=== PATIENT | female | born 1985 | race Caucasian/White ===

== ENCOUNTER 2020-11-13 17:13 | Outpatient (REF) | payer MEDICAID, SELFPAY ==
[2020-11-15 15:12] LABS: Chlamydia Result Negative (Negative); GC Result Negative (Negative)
== END 2020-11-13 17:33 ==
LOC: LBN 17:13
PROVIDERS: PCP Nurse Practitioner Family; Visit Provider Physician Assistant
DX: N76.0 Acute vaginitis (principal); Z20.2 Contact with and (suspected) exposure to infections with a predominantly sexual mode of transmission; Z11.3 Encounter for screening for infections with a predominantly sexual mode of transmission
CPT/HCPCS: 87491; 87591; 87480; 87510; 87660

== ENCOUNTER 2022-01-21 18:28 | Emergency (ER) | payer MEDICAID, SELFPAY ==
[2022-01-21 18:34] VITALS: BP 118/59; PULSE 70; RESP 18; TEMP 36.3; O2SAT 96
[2022-01-21] MEDS: Ketorolac 15 MG/ML VIAL IVP (19:22)
[2022-01-21] MEDS: Cephalexin 500 MG CAP PO (19:22)
[2022-01-21 19:27] LABS: Abs Immature Grans 0.04 10^3/uL (0.0-0.06); Absolute Basophil Count 0.05 10^3/uL (0.0-0.2); Absolute Eosinophil Count 0.31 10^3/uL (0.0-0.7); Absolute Lymphocyte Count 3.95 10^3/uL (1.2-3.4); Absolute Monocyte Count 1.19 10^3/uL (0.1-0.8); Basophils % 0.4; Eosinophils % 2.6; HCT 40.5 % (36.0-46.0); Immature Grans % 0.3; MCH 33.9 pg (27.0-33.0); MCHC 34.6 % (32.0-36.0); MCV 98.1 fL (80-95); MPV 12.8 fL (8.0-11.0); Monocytes % 9.9; Neutrophils % 53.8; Nucleated RBC 0 %; Platelet Count 135 10^3/uL (130-400); RBC 4.13 10^6/uL (3.93-5.22); RDW 12.2 % (11.7-14.6); RDW-SD 44.3 fL; WBC 11.98 10^3/uL (4.4-10.8)
[2022-01-21 19:31] LABS: Absolute Neutrophil Count 6.45 10^3/uL (1.2-6.7)
[2022-01-21 19:38] LABS: ALT 77 U/L (14-59); AST 26 U/L (15-37); Albumin 3.5 g/dL (3.4-5.0); Alkaline Phosphatase 58 U/L (46-116); Anion Gap 6.6 mmol/L (3-11); BUN 18 mg/dL (7-18); Bilirubin, Total 0.7 mg/dL (0.2-1.0); CO2 28.4 mmol/L (21.0-32.0); CREATININE 0.7 mg/dL (0.55-1.02); Calcium 8.6 mg/dL (8.5-10.1); Chloride 105 mmol/L (98-107); Glucose 89 mg/dL (74-106); Potassium 3.8 mmol/L (3.5-5.1); Sodium 140 mmol/L (136-145); Total Protein 6.9 g/dL (6.4-8.2)
[2022-01-21 19:54] LABS: D-Dimer 337 ng/mlFEU (<500)
--- NOTE | 2022-01-21 20:03 | ED.GENADUL_ITS ---
Discharge Plan Disposition Patient Disposition: HOME Condition: Stable Discharge Details Clinical Impression: Acute back pain with sciatica, Furuncle of extremity Primary Care Provider: Tabitha Zapata ED Provider: Sarwat Patricia Home Meds and New Rx's Prescriptions: New cephalexin 500 mg tablet 500 mg PO QID 5 Days Qty: 20 0RF ibuprofen [IBU] 600 mg tablet 600 mg PO QID PRN (Reason: pain) Qty: 14 0RF Discharge Instructions Instructions: Furunculosis and Carbunculosis (ED), Back Pain (ED) Additional Instructions: At this time it appears that you have an ingrown hair follicle that is mildly infected. Please take antibiotics as prescribed and also apply a warm compress for 20 minutes at a time at least 4 times daily. It will typically take 24 to 48 hours to see improvement of your symptoms but if you have any significant worsening of your symptoms please return immediately for reassessment. Otherwise follow-up with your primary care provider for reassessment if not improving in the next week. Referrals: Tabitha Zapata, ANGELA [Primary Care Provider] - 1 week (If not improving) Discharge Data Discharge Date/Time-TO BE ENTERED AT DEPARTURE: 01/21/22 20:16 Medical Decision Making Patient presenting to the emergency department with chief complaint of left lower leg pain. Patient does state history of sciatica/bulging disc with some pain radiating down her left leg. She does states she noticed a area of swelling and significant pain to the back of the leg with redness and warmth. Patient denies any known injury or trauma, fever chills, does state that her entire left leg hurts. Physical exam shows normal range of motion of left lower extremity, no swelling, no pinpoint tenderness but all over reported discomfort, and a carbuncle/furuncle to the posterior thigh with point tenderness and discomfort. Exam is otherwise unremarkable. Suspect that patient has her chronic sciatica with discomfort due to small infected furuncle. Given that patient states entire extremity discomfort we will do some labs including D- dimer as I feel this is appropriate for rule out of DVT given no other physical exam findings or history that would suggest high suspicion of this. Review of labs is nonworrisome except for a mild elevated WBC lymphocytes and monocytes otherwise labs are nondiagnostic with a less than 500 D-dimer. Given this patient was placed upon NSAIDs for her sciatic type back pain and Keflex for the slight area of infection. Patient encouraged to follow-up with primary care for reassessment of wound especially if not improving over the next week. After discussion of diagnosis and plan of care patient has no further needs, questions, or concerns and states clear understanding to return to the emergency department for any worsening symptoms. HPI General Mode of arrival: ambulatory . Date/Time Provider Initiated Documentation: 01/21/22 18:40 . Limitations to Documentation: no limitations . Information obtained by: patient . History of Present Illness 36 year old F presents to the emergency department with the chief complaint of Left leg pain, described as moderate, with intensity rated at 8. Quality is described as sharp, and is localized to the left and lower extremity. Patient distal. Patient started experiencing this week(s) (2) and it has been constant. improves with No relieving factors improve symptom(s), and Rest improves symptom(s), Movement worsens symptoms and Other factors that worsen symptoms (Sciatic back pain) . Patient notes no other symptoms.. Patient did receive the following treatments prior to arrival, none Related Data Home Medications Medication Instructions Recorded Confirmed cephalexin 500 mg tablet 500 mg PO QID 5 Days #20 tab 01/21/22 ibuprofen 600 mg tablet (IBU) 600 mg PO QID PRN #14 tab 01/21/22 Previous Rx's Medication Instructions Recorded cephalexin 500 mg tablet 500 mg PO QID 5 Days #20 tab 01/21/22 ibuprofen 600 mg tablet (IBU) 600 mg PO QID PRN #14 tab 01/21/22 Allergies Allergy/AdvReac Type Severity Reaction Status Date / Time codeine Allergy Mild Skin Rash Verified 01/21/22 19:12 General Stated Complaint: Cellulitis OREN: 3 Review of Systems Constitutional Constitutional: Denies chills and Denies fever(s) Cardiovascular Cardiovascular: Denies chest pain and Denies dyspnea on exertion Respiratory Respiratory: Denies cough and Denies dyspnea on exertion Gastrointestinal Gastrointestinal: Denies abdominal pain, Denies change in bowel habits, Denies diarrhea, Denies nausea and Denies vomiting Genitourinary Genitourinary: Denies urinary incontinence Musculoskeletal Musculoskeletal: Reports as per HPI and Reports back pain Integumentary/Breasts Skin/Breast: Reports as per HPI, Reports furuncle, Reports skin pain and Reports skin swelling Neurologic Neurologic: Denies sensory deficit PFSH All Active Problems Furuncle of extremity (Acute) Acute back pain with sciatica (Acute) Exposure to chlamydia (Acute) Cigarette smoker (Chronic) TMJ (temporomandibular joint syndrome) (Chronic) Social History Smoking/Tobacco Use Status: Current every day Tobacco Type: cigarettes Counseling given: other Details: ADVISED TO QUIT Smoking risk assessment performed?: Yes Alcohol Intake: current Alcohol Intake frequency: 0-2 drinks per day Drug use: Never Substance use type: does not use current occupation: [employer] Do you think of yourself as: straight/heterosexual What type of physical activity do you participate in: none Seatbelt use: always Do you feel safe at home: Yes Do you feel safe in your relationship?: Yes Exam Const General: cooperative, no acute distress and not ill appearing Orientation: alert, awake and oriented x3 HENMT Mouth: moist mucous membranes Resp Effort & Inspection: normal respiratory effort, able to speak in complete sentences and no respiratory distress Cardio Rate: regular rate Rhythm: regular rhythm Pulses: posterior tibial pulses present and dorsalis pedis present Neuro General: patient alert, patient awake, patient oriented x3, moves all extremities and no focal motor deficits Sensory Exam: no sensory deficits noted Extrem General: normal exam except as noted Left lower extremity: full ROM, normal capillary refill, no joint enlargement and hip/thigh Details: tenderness Location: of the proximal upper leg Location: posteriorly (Over area of carbuncle) and normal ROM; Negative for no swelling, no abrasions, no lacerations, no ecchymosis, no penetrating wound, no deformity and no unusual warmth; No no edema Course Vital Signs Vital signs: Vital Signs Temperature 36.3 C L 01/21/22 18:34 Pulse 70 01/21/22 18:34 Respiratory Rate 18 01/21/22 18:34 Blood Pressure 118/59 L 01/21/22 18:34 Pulse Oximetry 96 01/21/22 18:34 Temperature 36.3 C L 01/21/22 18:34 Temperature Source Temporal Artery Scan 01/21/22 18:34 Pulse 70 01/21/22 18:34 Respiratory Rate 18 01/21/22 18:34 Respiratory Effort Non-Labored 01/21/22 18:39 Blood Pressure 118/59 L 01/21/22 18:34 Blood Pressure Position Sitting 01/21/22 18:34 Pulse Oximetry 96 01/21/22 18:34 Oxygen Delivery Method Room Air 01/21/22 18:34 Oxygen Flow Rate 0 01/21/22 18:34 Lab/Test Results Lab/Test Results: Laboratory Tests Range/Units 01/21/22 01/21/22 01/21/22 19:18 19:18 19:18 WBC (4.4-10.8) 10^3/uL 11.98 H RBC (3.93-5.22) 10^6/uL 4.13 Hgb (11.2-15.7) g/dL 14.0 Hct (36.0-46.0) % 40.5 MCV (80-95) fL 98.1 H MCH (27.0-33.0) pg 33.9 H MCHC (32.0-36.0) % 34.6 RDW (11.7-14.6) % 12.2 Plt Count (130-400) 10^3/uL 135 MPV (8.0-11.0) fL 12.8 H Immature Gran % 0.3 Neutrophils % 53.8 Lymphocytes % 33.0 Monocytes % 9.9 Eosinophils % 2.6 Basophils % 0.4 Nucleated RBC % % 0 Absolute Neutrophils (1.2-6.7) 10^3/uL 6.45 Absolute Lymphocytes (1.2-3.4) 10^3/uL 3.95 H Absolute Monocytes (0.1-0.8) 10^3/uL 1.19 H Absolute Eosinophils (0.0-0.7) 10^3/uL 0.31 Absolute Basophils (0.0-0.2) 10^3/uL 0.05 D-Dimer (<500) ng/mlFEU 337 Sodium (136-145) mmol/L 140 Potassium (3.5-5.1) mmol/L 3.8 Chloride (98-107) mmol/L 105 Carbon Dioxide (21.0-32.0) mmol/L 28.4 Anion Gap (3-11) mmol/L 6.6 BUN (7-18) mg/dL 18 Creatinine (0.55-1.02) mg/dL 0.7 Estimated GFR/1.73 m2 (mL/min/1.73m2) >= 60.00 Glucose (74-106) mg/dL 89 Calcium (8.5-10.1) mg/dL 8.6 Total Bilirubin (0.2-1.0) mg/dL 0.7 AST (15-37) U/L 26 ALT (14-59) U/L 77 H Alkaline Phosphatase (46-116) U/L 58 Total Protein (6.4-8.2) g/dL 6.9 Albumin (3.4-5.0) g/dL 3.5 PAWSS Have you Been Recently Intoxicated or Drunk Within the Last 30 days?: No Have you Ever Experienced Previous Episodes of Alcohol Withdrawal?: No Have you ever Experienced Withdrawal Seizures?: No Have you ever Experienced Delirium Tremens(DT)s?: No Have you ever undergone Alcohol Rehabilitation Treatment (i.e, inpt ot outpatient treatment programs)?: No Have you ever Experienced Blackouts?: Yes Have you ever Combined Alcohol with other Downers within the last 90 days?: No Have you ever Combined Alcohol with any other Substance of Abuse during the last 90 days?: No Positive Blood Alcohol level on Presentation? [PCS.BAL]: No Evidence of Increased Autonomic Activity (i.e. HR>120, tremor, sweating, agitation, nausea)?: No Result: 1
== END 2022-01-21 20:16 | disposition home or self-care (01) ==
PROVIDERS: Emergency Provider Nurse Practitioner Family; PCP Nurse Practitioner Family
DX: M54.42 Lumbago with sciatica, left side (principal); L02.426 Furuncle of left lower limb
CPT/HCPCS: 36415; 80053; 96374; 99284; 85025; 85379; 99283; J1885

== ENCOUNTER 2023-08-05 12:18 | Emergency (ER) | payer MEDICAID, SELFPAY ==
[2023-08-05 12:24] VITALS: BP 118/63; PULSE 66; RESP 18; TEMP 36.4; O2SAT 98
[2023-08-05 13:08] VITALS: BP 118/63; PULSE 66; RESP 18; TEMP 36.4; O2SAT 98
--- NOTE | 2023-08-05 14:39 | W.ED.GENAD ---
Discharge Plan Disposition Patient Disposition: Home Discharge Details Clinical Impression: Postviral syndrome Primary Care Provider: Tabitha Zapata ED Provider: Sarwat Patricia Home Meds and New Rx's Prescriptions: New benzonatate 200 mg capsule 200 mg PO TID PRN (Reason: cough) Qty: 30 0RF Continued albuterol sulfate 90 mcg/actuation HFA aerosol inhaler 2 puff inhalation QID PRN (Reason: shortness of breath or wheezing) Qty: 8.5 1RF ibuprofen [IBU] 600 mg tablet 600 mg PO QID PRN (Reason: pain) Qty: 14 0RF Discharge Instructions Instructions: Viral Syndrome (ED) Additional Instructions: Please get plenty of rest and stay well-hydrated. At this time I feel that you are recovering from a virus and may still have an additional week or so before your symptoms fully resolved. If you develop any new fever or have any significant worsening of symptoms at this point please be seen by your primary care provider or if severe feel free to follow-up in the emergency department for reassessment. Referrals: Tabitha Zapata, WET CROWN BLOCKING OPERATOR [Primary Care Provider] - 1 week (If not improving please follow-up with your primary care provider for reassessment) Discharge Data Discharge Date/Time-TO BE ENTERED AT DEPARTURE: 08/05/23 14:56 Medical Decision Making Patient presenting to the clinic for chief complaint of cold symptoms. Patient reports symptoms have been going on for the past 14 days. reports nasal congestion, and sore throat. Physical exam is unremarkable and shows no focal HENT findings with clear lung sounds stable vital signs. Patient has no signs of meningitis, peritonsillar abscess, retropharyngeal abscess, Juan M's angina, or life-threatening Airway infection. Conservative management discussed along with follow-up and return precautions. Patient prescribed Tessalon Perles to help with reported nighttime intermittent cough otherwise I feel that patient is recovering from viral illness which she stated started 2 weeks ago but denies any worsening of symptoms. After discussion of diagnosis and plan of care patient has no further needs, questions, or concerns and states clear understanding to return to the emergency department for any worsening symptoms. This documentation was generated using [employer]palmation system, please disregard any oddities of phrase or misspellings. HPI General Mode of arrival: ambulatory. Date/Time Provider Initiated Documentation: 08/05/23 13:18. Limitations to Documentation: no limitations. Information obtained by: patient and RN notes reviewed. History of Present Illness 37 year old F presents to the emergency department with the chief complaint of Cough, congestion, described as moderate, Patient started experiencing this week(s) (2) and it has been constant. No relieving factors improve symptom(s), No exacerbating factors reported . Patient did receive the following treatments prior to arrival, none Related Data Home Medications Medication Instructions Recorded Confirmed ibuprofen 600 mg tablet (IBU) 600 mg PO QID PRN pain #14 tabs 01/21/22 08/05/23 albuterol sulfate 90 mcg/actuation 2 puff inhalation QID PRN 04/23/23 08/05/23 aerosol inhaler shortness of breath or wheezing #8.5 grams benzonatate 200 mg capsule 200 mg PO TID PRN cough #30 caps 08/05/23 Previous Rx's Medication Instructions Recorded ibuprofen 600 mg tablet (IBU) 600 mg PO QID PRN pain #14 tabs 01/21/22 albuterol sulfate 90 mcg/actuation 2 puff inhalation QID PRN 04/23/23 aerosol inhaler shortness of breath or wheezing #8.5 grams benzonatate 200 mg capsule 200 mg PO TID PRN cough #30 caps 08/05/23 Allergies Allergy/AdvReac Type Severity Reaction Status Date / Time codeine Allergy Mild Skin Rash Verified 08/05/23 12:26 General Stated Complaint: RespSymp ORNE: 4 Review of Systems Constitutional Constitutional: Denies body ache(s), Denies chills, Denies fever(s), Denies headache(s) and Reports malaise Eyes Eyes: Denies eye discharge ENT Ears, Nose, Mouth, and Throat: Reports as per HPI, Denies ear discharge, Reports otalgia, Denies headache(s), Reports nasal congestion, Denies neck pain, Denies sore throat and Denies throat swelling Cardiovascular Cardiovascular: Denies chest pain and Denies dyspnea Respiratory Respiratory: Reports cough, Denies pain with cough and Denies dyspnea Musculoskeletal Musculoskeletal: Denies joint swelling and Denies neck pain Integumentary/Breasts Skin/Breast: Denies rash Neurologic Neurologic: Denies headache(s) Allergic/Immunologic Allergic/Immunologic: Denies throat swelling PFSH All Active Problems (Updated 08/05/23 @ 14:39 by Sarwat Patricia NP) Postviral syndrome (Acute) Exposure to chlamydia (Acute) Cigarette smoker (Chronic) TMJ (temporomandibular joint syndrome) (Chronic) Social History Smoking/Tobacco Use Status: Current every day Tobacco Type: cigarettes Counseling given: other Details: ADVISED TO QUIT Smoking risk assessment performed?: Yes Alcohol Intake: current Alcohol Intake frequency: 0-2 drinks per day Drug use: Never Substance use type: does not use current occupation: [employer] Do you think of yourself as: straight/heterosexual What type of physical activity do you participate in: none Seatbelt use: always Do you feel safe at home: Yes Do you feel safe in your relationship?: Yes Exam Const General: cooperative, comfortable and no acute distress Orientation: alert and awake HENMT Head: normal to inspection, normocephalic and atraumatic Ears: hearing grossly normal bilaterally and TM's normal bilaterally General nose exam: external nose normal Face and sinus: no erythema Mouth: oral mucosae normal, no drooling, no muffled voice and no trismus Throat: posterior oropharynx normal Neck Neck: normal visual inspection, full ROM, no lymphadenopathy, no meningeal signs, trachea midline and supple Resp Effort & Inspection: normal respiratory effort and able to speak in complete sentences Auscultation: clear to auscultation bilaterally Cardio Rate: regular rate Rhythm: regular rhythm Heart Sounds: S1 normal, S2 normal, normal S1 and S2, no click, no gallops, no murmurs and no rubs Skin General skin exam: no rashes or lesions noted and dry skin (warm) Neuro General: patient alert, patient awake, patient oriented x3, gait normal and moves all extremities Cognition: normal cognition Speech: speech normal Course Vital Signs Vital signs: Vital Signs Temperature 36.4 C L 08/05/23 12:24 Pulse 66 08/05/23 12:24 Respiratory Rate 18 08/05/23 12:24 Blood Pressure 118/63 08/05/23 12:24 Pulse Oximetry 98 08/05/23 12:24 Temperature 36.4 C L 08/05/23 13:08 Temperature Source Skin 08/05/23 13:08 Pulse 66 08/05/23 13:08 Respiratory Rate 18 08/05/23 13:08 Respiratory Effort Normal, Non-Labored 08/05/23 13:06 Respiratory Depth Normal 08/05/23 13:06 Blood Pressure 118/63 08/05/23 13:08 Blood Pressure Position Sitting 08/05/23 13:08 Pulse Oximetry 98 08/05/23 13:08 Oxygen Delivery Method Room Air 08/05/23 13:08 Oxygen Flow Rate 0 08/05/23 13:08
== END 2023-08-05 14:56 | disposition home or self-care (01) ==
PROVIDERS: Emergency Provider Nurse Practitioner Family; PCP Nurse Practitioner Family
DX: G93.31 Postviral fatigue syndrome (principal)
CPT/HCPCS: 99283

== ENCOUNTER 2024-11-13 16:34 | Observation (INO) | payer MEDICAID, SELFPAY ==
[2024-11-13 16:37] VITALS: BP 149/101; PULSE 66; RESP 15; TEMP 36.8; O2SAT 98
[2024-11-13 16:39] VITALS: BP 149/101; PULSE 66; RESP 15; TEMP 36.8; O2SAT 98
--- NOTE | 2024-11-13 17:00 | DI.CT_ITS ---
Exam(s) CT ABDOMEN PELVIS W EXAM: CT ABDOMEN PELVIS W CLINICAL HISTORY: RUQ pain. TECHNIQUE: Imaging Protocol: Axial computed tomography images with coronal and sagittal reformatted images were created and reviewed CONTRAST MATERIAL: Intravenous: Omnipaque-350 100cc Oral: None COMPARISON: No exams were available for comparison FINDINGS: VISUALIZED LUNG BASES: No nodules nor pleural effusions evident. ABDOMEN: There is no ascites. LIVER: There are no focal hepatic lesions evident. No dilated intrahepatic ducts. GALLBLADDER/BILIARY: There is a round 2 cm diameter gallstone lodged in the gallbladder neck and the gallbladder is distended and minimally edematous. There is no pericholecystic fluid. CBD is not dil ated. PANCREAS: No evidence of pancreatic mass nor dilatation of the pancreatic duct. SPLEEN: Spleen is not enlarged. No obvious intrasplenic lesions. Splenic and portal veins are paten t. ADRENALS: There are no significant adrenal masses. KIDNEYS:No cysts evident. No solid renal masses. No calculi nor hydronephrosis.. ABDOMINAL AORTA: Abdominal aorta is not enlarged. LYMPH NODES:There is no retroperitoneal nor paraaortic adenopathy. ABDOMINAL WALL: No evidence of significant anterior abdominal wall nor inguinal hernia. GI: There is no evidence of bowel obstruction, free air, nor abscess. PELVIS: GI: No evidence of appendicitis.No evidence of sigmoid diverticulitis. LYMPH NODES: There is no intrapelvic nor inguinal adenopathy. REPRODUCTIVE: Uterus and adnexal regions appear unremarkable. There is no air column consistent with tampon in the vagina. There is no free fluid in the pelvis. URINARY BLADDER: No calculi nor obvious masses evident OSSEOUS: No fractures and no significant osseous lesions. IMPRESSION: 1. The main finding here is a 2 cm round gallstone lodged in the gallbladder neck and the gallbladder is distended and mildly edematous. CBD is not dilated. There are no dilated intrahepatic ducts. 2. No evidence of appendicitis nor diverticulitis. Findings discussed by phone with ER provider 11/13/2024 at 6:54 p.m. RADIATION DOSE DELIVERED: 628.77mGy.cm Total DLP DATA REPOSITORY: All CT scans at this facility are submitted to the National Radiology Data Registry (NRDR) Dose Index Registry (DIR) with the [employer] (ACR). RADIATION OPTIMIZATION: All CT scans at this facility use at least one of these dose optimization te chniques: automated exposure control; mA and/or kV adjustment per patient size (includes targeted exa ms where dose is matched to clinical indication); or iterative reconstruction.
[2024-11-13 17:08] LABS: Bilirubin Negative (Negative); Blood Moderate (Negative); Clarity Clear (Clear); Glucose Negative (Negative); Ketones Trace mg/dL (Negative); Leukocyte Esterase Negative (Negative); Nitrite Negative (Negative); Specific Gravity >= 1.030 (1.005-1.025); Urobilinogen 0.2 mg/dL (Up to 0.2)
[2024-11-13 17:18] LABS: Bacteria Rare HPF (Negative); C & S Indicated? No/Sq. Contamination; Casts Negative LPF (Negative); Crystals Negative HPF (Negative); Epithelial Cells Moderate HPF (Negative); Mucus Moderate (Negative); WBC 0-2 HPF (0-5)
[2024-11-13 17:33] LABS: Abs Immature Grans 0.02 10^3/uL (0.0-0.06); Absolute Basophil Count 0.02 10^3/uL (0.0-0.2); Absolute Eosinophil Count 0.07 10^3/uL (0.0-0.7); Absolute Lymphocyte Count 2.75 10^3/uL (1.2-3.4); Absolute Monocyte Count 0.71 10^3/uL (0.1-0.8); Absolute Neutrophil Count 5.26 10^3/uL (1.2-6.7); Basophils % 0.2 %; Eosinophils % 0.8 %; HGB 14.9 g/dL (11.2-15.7); Immature Grans % 0.2 %; Lymphocytes % 31.1 %; MCH 32.9 pg (27.0-33.0); MCHC 34.7 % (32.0-36.0); MCV 95 fL (80-95); MPV 12.7 fL (8.0-11.0); Neutrophils % 59.7 %; Platelet Count 152 10^3/uL (130-400); RBC 4.53 10^6/uL (3.93-5.22); RDW 11.9 % (11.7-14.6); RDW-SD 41.4 fL; WBC 8.83 10^3/uL (4.4-10.8)
[2024-11-13] MEDS: ACETAMINOPHEN 1,000 MG/100 ML BAG 400 MG IVPB (17:48)
[2024-11-13] MEDS: Ondansetron 4 MG/2 ML VIAL IVP (18:06)
[2024-11-13] MEDS: Normal Saline - Diluent 50 ML VIAL IJ (18:26)
[2024-11-13] MEDS: Omnipaque 350 MG/ML 100 ML BTL 75 ML IJ (18:28)
--- OUTSIDE RECORDS SUMMARY | 2024-11-13 18:59 | XMS_ITS | Encounter Summary ---
Author Organization [facility] Address [address] [place] [address] Care Team Providers Care Steel Cutter Name Role Phone Unavailable Primary Care Provider Unavailabl e Encounter Details Date Type Department Care Team (Late st Contact Info) Description 05/02/2005 Results Only [facility] [address] [place] [address] Terrance Newberry [address] [place], [place] [id number] Social History Tobacco Use Types Packs/Day Years Used Date Smoking Tobacco: Never Assessed Comments Unknown Sex and Gender Information Value Date Recorded Sex Assigned at Not on file Legal Sex Female 18:33 EST Gender Identity Not on file Sexual Orientation Not on file documented as of this encounter Plan of Treatment Not on file documented as of this encounter Procedures Procedure Name Priority Date/Time Associated Diagnosis Comments CYTOPATHOLOGY Routine 05/02/2005 0:00 EDT documented in this encounter Results * CYTOPATHOLOGY (05/02/2005 0:00 EDT) Pathology Report: CYTOPATHOLOGY REPORT Reports generated via electronic interface contain original data; however they are lacking the format of the original report. Caution should be taken when reading/interpreti ng unformatted reports. Name: ? JIMENEZ ASHLEY ? Accession #: ? [id number] : ? 1985 (Age: 19) ??F ?Collect Date: ? 05/02/2005 Location: ? [facility] ? Receive Date: ? 05/04/2005 Provider: ?TERRANCE GASPARM Copy to: ? Specimen/Source: ?ThinPrep Pap Test, Cervix/Endocervix, processed on [employer] ThinPrep Imaging System, with manual evaluation Last Menstrual Period: ? Hormonal/Contracep tive Status: ? Depo-Provera Other: ? HPVA - HPV testing requested if ASC-US on the current ThinPrep Pap test. ? SPECIMEN ADEQUACY ? Satisfactory for Evaluation - transformation zone component present GENERAL CATEGORIZATION ? Negative for Intraepithelial Lesion or Malignancy ? Document reviewed and electronically signed by: ? Noel Justice, DEANNA(ASCP) ? Report Date: ??05/12/2005 07:10 End of Report KATIE SANDOVAL 05/02/2005 05/04/2005 us Terrance Newberry CNM PATHOLOGY ORDERABLES Final Resul t KATIE SANDOVAL [address] [place] [address] documented in this encounter Visit Diagnoses Not on filedocumented in this encounter
--- OUTSIDE RECORDS SUMMARY | 2024-11-13 18:59 | XMS_ITS | Encounter Summary ---
Author Organization [facility] [place] [address] Care Team Providers Care Manager Of Product Name Role Phone Dinesh Sarkar MD, Billy Primary Care Provider [phone] Reason for Visit * Reason Onset Date Comments Medication Refill 03/29/2016 Encounter Details Date Type Department Care Team (Late st Contact Info) Description 03/29/2016 Refill [place] [address] Wood Francisco MD [facility] [place] [address] Spinal stenosis at L4-L5 level Social History Tobacco Use Types Packs/Day Years Used Date Smoking Tobacco: Never Assessed Sex and Gender Information Value Date Recorded Sex Assigned at Not on file Gender Identity Not on file Sexual Orientation Not on file documented as of this encounter Plan of Treatment Not on file documented as of this encounter Visit Diagnoses Diagnosis Spinal stenosis at L4-L5 level documented in this encounter Care Teams Manager Of Product Relationship Specialty Start Date End Date Billy Montiel MD [address] [place], [place] [id number] PCP - General 09/06/10 10/23/24 documented as of this encounter
--- OUTSIDE RECORDS SUMMARY | 2024-11-13 18:59 | XMS_ITS | Clinical Summary ---
Author Organization [facility] Address [address] [place] [id number] Care Team Providers Care Float Remover Name Role Phone Unknown, Provider MD Primary Care Provider Unava ilable Social History Tobacco Use Types Packs/Day Years Used Date Smoking Tobacco: Never Assessed Comments Unknown Sex and Gender Information Value Date Recorded Sex Assigned at Not on file Legal Sex Female 18:33 EST Gender Identity Not on file Sexual Orientation Not on file Plan of Treatment Health Maintenance Due Date Last Done Comments Hepatitis C Screen 1985 Hepatitis B Vaccine (1 of 3 - 19+ 3-dose series) 12/22 COVID-19 Vaccine (2023- season) 2024 Care Teams Float Remover Relationship Specialty Start Date End Date Unknown, Provider, PCP - General 02/12/15
--- OUTSIDE RECORDS SUMMARY | 2024-11-13 18:59 | XMS_ITS | Encounter Summary ---
Author Organization [facility] Address [address] [place] [address] Care Team Providers Care Bucket Wash Operator Name Role Phone Unavailable Primary Care Provider Unavailabl e Encounter Details Date Type Department Care Team (Late st Contact Info) Description 03/28/2004 Results Only [facility] [address] [place] [address] Terrance Phillips CN [address] [facility] [address] [place], [place] [id number] Social History Tobacco Use Types Packs/Day Years [...] Priority Date/Time Associated Diagnosis Comments CYTOPATHOLOGY Routine 03/28/2004 0:00 EDT documented in this encounter Results * CYTOPATHOLOGY (03/28/2004 0:00 EDT) Pathology Report: CYTOPATHOLOGY REPORT Reports generated via electronic interface contain original data; however they are lacking the format of the original report. Caution should be taken when reading/interpreti ng unformatted reports. Name: ? JIMENEZ ASHLEY ? Accession #: ? [id number] : ? 1985 (Age: 18) ??F ?Collect Date: ? 03/28/2004 Location: ? [facility] ? Receive Date: ? 03/31/2004 Provider: ?TERRANCE PHILLIPS CNM Copy to: ? Specimen/Source: ?ThinPrep Pap Test, Cervix/Endocervix Last Menstrual Period: ? 12/28/03 Menstrual/Pregnanc y Status: ? Other: ? HPVA - HPV testing requested if ASC-US on the current ThinPrep Pap test. ? SPECIMEN ADEQUACY ? Satisfactory for Evaluation - transformation zone component present GENERAL CATEGORIZATION ? Negative for Intraepithelial Lesion or Malignancy ? Document reviewed and electronically signed by: ? DEANNA Wilburn(ASCP) ? Report Date: ??04/05/2004 09:23 End of Report [facility] 03/28/2004 03/31/2004 us Subhabritany Pelayodiane CNM PATHOLOGY ORDERABLES Final Resul t [facility]AT[facility]OV[facility] [address] [place] [address] documented in this encounter Visit Diagnoses Not on filedocumented in this encounter
--- OUTSIDE RECORDS SUMMARY | 2024-11-13 18:59 | XMS_ITS | Encounter Summary ---
Author Organization [facility] Address [address] [place] [address] Care Team Providers Care Slots Manager Name Role Phone Unavailable Primary Care Provider Unavailabl e Encounter Details Date Type Department Care Team (Latest Contact Info) Description 02/09/2015 14:34 EDT - 02/09/2015 23:59 EDT Hospital Encounter [address] [address] Unknown, Provider, MD Discharge Disposition: Home or Self Care Social History Tobacco Use Types Packs/Day Years Used Date Smoking Tobacco: Never Assessed Comments Unknown Sex and Gender Information Value Date Recorded Sex Assigned at Not on file Legal Sex Female 18:33 EST Gender Identity Not on file Sexual Orientation Not on file documented as of this encounter Discharge Disposition Disposition Code Departure Means Destination Home or Self Mcfp documented in this encounter Plan of Treatment Not on file documented as of this encounter Visit Diagnoses Not on filedocumented in this encounter
--- OUTSIDE RECORDS SUMMARY | 2024-11-13 18:59 | XMS_ITS | Referral Summary ---
Author Organization [facility] Address [address] [place] [address] Care Team Providers Care Staff Anesthetist Name Role Phone Unknown, Provider Primary Care Provider Unava ilable Social History Tobacco Use Types Packs/Day Years Used Date Smoking Tobacco: Never Assessed Comments Unknown Sex and Gender Information Value Date Recorded Sex Assigned at Not on file Legal Sex Female 18:33 EST Gender Identity Not on file Sexual Orientation Not on file Plan of Treatment Not on file Care Teams Staff Anesthetist Relationship Specialty Start Date End Date Unknown, Provider, PCP - General 02/12/15
--- OUTSIDE RECORDS SUMMARY | 2024-11-13 18:59 | XMS_ITS | Encounter Summary ---
Author Organization [facility] Address [address] [place] [address] Care Team Providers Care Research Editor Name Role Phone Unavailable Primary Care Provider Unavailabl e Encounter Details Date Type Department Care Team (Late st Contact Info) Description 05/16/2007 Results Only [facility] [address] [place] [address] Altaf Burton PA Social History Tobacco Use Types Packs/Day Years [...] Priority Date/Time Associated Diagnosis Comments CYTOPATHOLOGY Routine 05/16/2007 0:00 EDT documented in this encounter Results * CYTOPATHOLOGY (05/16/2007 0:00 EDT) Pathology Report: CYTOPATHOLOGY REPORT Reports generated via electronic interface contain original data; however they are lacking the format of the original report. Caution should be taken when reading/interpreti ng unformatted reports. Name: ? JIMENEZ ASHLEY ? Accession #: ? [id number] : ? 1985 (Age: 21) ??F ?Collect Date: ? 05/16/2007 Location: ? [facility] ? Receive Date: ? 05/20/2007 Provider: ?ALTAF ARANA Copy to: ? Specimen/Source: ?ThinPrep Pap Test, Endocervix, processed on [employer]FXPERT ThinPrep Imaging System, with manual evaluation Last Menstrual Period: ? Hormonal/Contracep tive Status: ? Depo-Provera Other: ? HPVA - HPV testing requested if ASC-US on the current ThinPrep Pap test. ? SPECIMEN ADEQUACY ? Satisfactory for Evaluation - transformation zone component present GENERAL CATEGORIZATION ? Negative for Intraepithelial Lesion or Malignancy ? Document reviewed and electronically signed by: ? Wanda Mock, SCT(ASCP) ? Report Date: ??05/22/2007 15:14 End of Report KATIE SANDOVAL 05/16/2007 05/20/2007 us Altaf ARANA PATHOLOGY ORDERABLES Final Resul t [facility] [address] [place] [address] documented in this encounter Visit Diagnoses Not on filedocumented in this encounter
--- OUTSIDE RECORDS SUMMARY | 2024-11-13 18:59 | XMS_ITS | Encounter Summary ---
Author Organization [facility] Address [address] [place] [address] Care Team Providers Care Companion Caregiver Name Role Phone Unavailable Primary Care Provider Unavailabl e Encounter Details Date Type Department Care Team (Late st Contact Info) Description 08/21/2014 Results Only [facility] Laboratory Services - [facility] ([facility] [address] [place], [place] [id number] Terrance Phillips CN [address] [facility] [address] [place], [place] [id number] Social History Tobacco Use Types Packs/Day Years [...] Procedure Name Priority Date/Time Associated Diagnosis Comments PAP TEST- RESULT ONLY Routine 08/21/2014 0:00 EST documented in this encounter Results * PAP TEST- RESULT ONLY (08/21/2014 0:00 EST) Pathology Report: CYTOPATHOLOGY REPORT Reports generated via electronic interface contain original data; however they are lacking the format of the original report. Caution should be taken when reading/interpreti ng unformatted reports. Name: ? JIMENEZ ASHLEY ? Accession #: ? [id number] ? : ? 1985 (Age: 28) ??F ?Collect Date: ? 08/21/2014 ? Location: ? [facility] ? Receive Date: ? 08/24/2014 ? Provider: TERRANCE PHILLIPS CNM Copy to: KELSEY MERCEDES CNM ? Final Report SPECIMEN ADEQUACY ? Satisfactory for Evaluation - transformation zone component present GENERAL CATEGORIZATION ? Negative for Intraepithelial Lesion or Malignancy ?? Last Menstrual Period: Unknown Menstrual/Pregnanc y Status: ?? Specimen/Source: ??Pap Test, Cervix/Endocervix, ThinPrep Imaging System with manual evaluation Document reviewed and electronically signed by: ? Noel Justice, [place](ASCP) ? Report ??Date: 08/28/2014 14:09 HPV with Pap Test ? Date Ordered: ? 08/28/2014 ? Status: ?? Signed Out ?Date Complete: ? 09/01/2014 ? By: ??System Interface ? Date Reported: ? 09/01/2014 ? Interpretation RESULT: Negative for HPV. No E6 or E7 mRNA is detected from HPV types 16,18,31,33,35, 39,45,51,52,56,58, 59,66, and 68 by optimization manager mediated amplification. Comments Document reviewed and electronically signed by: ? System Interface ? Report date: 09/01/2014 By the signature above, the attending physician certifies that he/she has personally conducted a gross and/or microscopic examination of the described specimens and rendered or confirmed the above diagnosis. End of Report [facility] 08/21/2014 08/24/2014 us Terrance Phillips [facility] PATHOLOGY ORDERABLES Final Resul t [facility] [address] [place] [address] documented in this encounter Visit Diagnoses Not on filedocumented in this encounter
--- OUTSIDE RECORDS SUMMARY | 2024-11-13 18:59 | XMS_ITS | Clinical Summary ---
Author Organization [facility] Address [facility] [place] [address] Care Team Providers Care Vp Scientific Affairs Name Role Phone None Primary Care Provider Unavailabl e Active Problems Problem Noted Date Diagnosed Date Spinal stenosis at L4-L5 level 03/29/2016 Social History Tobacco Use Types Packs/Day Years Used Date Smoking Tobacco: Never Assessed Sex and Gender Information Value Date Recorded Sex Assigned at Not on file Gender Identity Not on file Sexual Orientation Not on file Plan of Treatment Health Maintenance Due Date Last Done Comments HIV screen 12/23/2003 Hepatitis C Screening 12/23/2003 Hepatitis B vaccine (0-59 yrs) (1) 2004 Tetanus/Diphtheria/Pertussis Vaccines (1 - Tdap) 12/22 HPV test 12/23/2015 PAP Smear 12/23/2015 Covid-19 Vaccine ( - 2023- season) 2024 Influenza (Flu) vaccine (1 o f 1 - Influenza standard series) 06/15/2024 Care Teams Vp Scientific Affairs Relationship Specialty Start Date End Date None None PCP - General 10/24/24
--- OUTSIDE RECORDS SUMMARY | 2024-11-13 18:59 | XMS_ITS | Encounter Summary ---
Author Organization [facility] Address [address] [place] [address] Care Team Providers Care Correctional Security Officer Name Role Phone Unknown, Provider Primary Care Provider Unava ilable Encounter Details Date Type Department Care Team (Late st Contact Info) Description 11/14/2020 Lab Requisition [facility] Pathology & Laboratory Medicine - [facility] [address] [place], [place] [id number] Outr Resulting Lab, Provider Social History Tobacco Use Types Packs/Day Years [...] Procedure Name Priority Date/Time Associated Diagnosis Comments CHLAMYDIA/N. GONORRHOEAE AMPLIFIED NUCLEIC ACID Routine 11/13/2020 14:00 EST documented in this encounter Results * CHLAMYDIA/N. GONORRHOEAE AMPLIFIED RNA (11/13/2020 14:00 EST) Neisseria gonorrhoeae Result Negative Negative 11/15/2020 15:07 EST [facility] Chlamydia trachomatis Result Negative Negative 11/15/2020 15:07 EST [facility] Swab ENTIRE WALL OF CERVIX / Unknown 11/13/2020 14:00 EST 11/14/2020 16:35 EST us Provider Outr Resulting Lab MICROBIOLOGY - GENER AL ORDERABLES Final Result [facility] [address] [place] [address] documented in this encounter Visit Diagnoses Not on filedocumented in this encounter Care Teams Correctional Security Officer Relationship Specialty Start Date End Date Unknown, Provider, PCP - General 02/12/15 documented as of this encounter
--- OUTSIDE RECORDS SUMMARY | 2024-11-13 18:59 | XMS_ITS | Encounter Summary ---
Author Organization [facility] Address [address] [place] [address] Care Team Providers Care Accounts Payable Bookkeeper Name Role Phone Unavailable Primary Care Provider Unavailabl e Encounter Details Date Type Department Care Team (Late st Contact Info) Description 02/09/2015 Results Only [facility] [phone] Leydi Santos MD [address] [place] [address] [place] [address] Social History Tobacco Use Types Packs/Day Years [...] Procedure Name Priority Date/Time Associated Diagnosis Comments SURGICAL PATHOLOGY Routine 02/09/2015 20 :36 EDT documented in this encounter Results * SURGICAL PATHOLOGY (02/09/2015 20:36 EDT) Pathology Report: SURGICAL PATHOLOGY REPORT Reports generated via electronic interface contain original data; however they are lacking the format of the original report. Caution should be taken when reading/interpret ing unformatted reports. Name: ? JIMENEZ ASHLEY ? Accession #: ? [id number] ? : ? 1985 (Age: 29) ??F ? Collect Date: ? 02/09/2015 ? Location: ? [facility] ? Receive Date: ? 02/09/2015 ? Provider: LEYDI SANTOS MD Copy to: ? Final Pathologic Diagnosis: A. FALLOPIAN TUBE, RIGHT, SALPINGECTOMY: - ??Fallopian tube with benign paratubal cyst; full cross sections identified.. B. FALLOPIAN TUBE, LEFT, SALPINGECTOMY: - ??Fallopian tube with no specific pathologic features; full cross sections identified. Comment: Deeper sections of part B have been examined. ?? Document reviewed and electronically signed by: NOE ALFONSO MD Report ??Date: 02/12/2015 16:22 By the signature above, the attending physician certifies that he/she has personally conducted a gross and/or microscopic examination of the described specimens and rendered or confirmed the above diagnosis. Specimen(s) Received: A. ??Right fimbria B. ??Left fimbria Clinical History: Multiparity Gross Description: A. ?Received in formalin labelled with proper patient identification (initials D, K) and right fimbria is a fimbriated fallopian tube (4.3 cm in length x 0.6 cm in diameter), without associated ovary. ??The serosa is armstrong-purple and smooth. ??Sectioning reveals a white cut surface with a pinpoint lumen throughout. ??Adjacent to the fimbria, there is a armstrong-white 0.8 cm in greatest dimension paratubal cystic structure which exudes clear fluid. Petroleum Blending Plant Operator sections are submitted in A1, which includes two cross sections and one-half of the fimbria. B. ?Received in formalin labelled with proper patient identification (initials D, K) and left fimbria is a fimbriated fallopian tube (5.3 cm in length x 0.5 cm in diameter), without associated ovary. ??The serosa is armstrong-purple and smooth. ??Sectioning reveals a white cut surface with a pinpoint lumen throughout. ??Petroleum Blending Plant Operator sections are submitted in B1, which includes two cross sections and one-half of the fimbria. Jen Caicedo 02/10/2015 10:31 AM End of Report [facility] 02/09/2015 20:3 6 EDT 02/09/2015 20:36 EDT us Leydi Santos MD PATHOLOGY ORDERABLES Final Resu lt [facility] [address] [place] [address] documented in this encounter Visit Diagnoses Not on filedocumented in this encounter
[2024-11-13 19:15] LABS: ALT 28 U/L (14-59); AST 17 U/L (15-37); Albumin 3.3 g/dL (3.4-5.0); Alkaline Phosphatase 59 U/L (46-116); Anion Gap 6.6 mmol/L (3-11); BUN 7 mg/dL (7-18); Bilirubin, Total 0.59 mg/dL (0.2-1.0); CO2 28.4 mmol/L (21.0-32.0); CREATININE 0.8 mg/dL (0.55-1.02); Chloride 104 mmol/L (98-107); Estimated GFR 96.66 (mL/min/1.73m2); Glucose 89 mg/dL (74-106); Lipase 19 U/L (<78); Potassium 3.9 mmol/L (3.5-5.1); Sodium 139 mmol/L (136-145); Total Protein 7.2 g/dL (6.4-8.2)
[2024-11-13 19:21] LABS: Calcium 9.4 mg/dL (8.5-10.1)
[2024-11-13 19:24] VITALS: BP 128/80; PULSE 61; RESP 12; TEMP 36.6; O2SAT 100
[2024-11-13] MEDS: Ketorolac 15 MG/ML VIAL 7.5 MG IVP (19:50)
[2024-11-13] MEDS: Prochlorperazine 10 MG/2 ML VIAL 5 MG IVP (20:53)
--- NOTE | 2024-11-13 21:00 | W.SURGCON ---
Date of service: 11/13/24 Time of Service: 21:00 Assessment and Plan Assessment and plan (1) Nausea & vomiting: Status: Acute Assessment and plan: 38 yo woman who with 3 days of nausea, vomiting and diarrhea and 4/10 abdominal pain. Normal vital signs. Liver labwork completely normal. No white count. No shift. No pericholecystic fluid on imaging. Unclear what the opiod use history is/was and what role/impact this plays on symptoms. Unclear indication for surgical admission. It's unlikely that she has cholecystitis when after 3 days of symptoms there is no pericholecystic fluid on imaging, no labwork abnormality and difficult to believe she can't hydrate herself if labwork and vitals are normal after 3 days of symptoms. Biliary colic does not last for days on end, but rather for a few hours and then resolves. We can admit her for observation overnight and see how she feels in the morning. No antibiotics. As requested by the patient (per ED provider) - no narcotics. Since she can't tolerate PO intake, we will keep her strict NPO. Re-assess in the morning. Repeat labwork. Possible role for ultrasound, but if she's feeling better, then we'll discharge her and manage further in the office setting. History of Present Illness Narrative: ED provider states patient is in excrutiating pain and cannot tolerate anything PO and needs admission. Specifically cannot drink Ruth Ambar, has been trying for 2 hours. Reports that this started 48 hours ago. The patient has normal labwork. She has normal vital signs. Nursing charts the pain as 4 / 10 pain for 3 days with diarrhea, n + v CT shows stone in neck of distended gallbladder. No pericholecystic fluid. Patient is daily smoker and reportedly refused any narcotics because of a history of opiod abuse. PFSH All Active Problems (Updated 11/13/24 @ 21:11 by Juan Melgar MD) Nausea & vomiting (Acute) Exposure to chlamydia (Acute) Cigarette smoker (Chronic) TMJ (temporomandibular joint syndrome) (Chronic) Social History Smoking/Tobacco Use Status: Current every day Tobacco Type: cigarettes Counseling given: other Details: ADVISED TO QUIT Smoking risk assessment performed?: Yes Alcohol Intake: current Alcohol Intake frequency: 0-2 drinks per day Drug use: Never Substance use type: does not use current occupation: [employer] Do you think of yourself as: straight/heterosexual What type of physical activity do you participate in: none Seatbelt use: always Do you feel safe at home: Yes Do you feel safe in your relationship?: Yes Exam Narrative Exam Narrative: Vitals signs in EMR unremarkable. RR 12. Reportedly exquisitely tender in the RUQ. Results Last Vital Signs Temp 97.9 F 11/13/24 19:24 Pulse 61 11/13/24 19:24 Resp 12 11/13/24 19:24 BP 128/80 11/13/24 19:24 Pulse Ox 100 11/13/24 19:24 Labs 11/13/24 17:25 11/13/24 18:36 Labs: Laboratory Results - last 24 hr 11/13/24 11/13/24 11/13/24 16:41 17:25 18:36 WBC 8.83 RBC 4.53 Hgb 14.9 Hct 43.0 MCV 95 MCH 32.9 MCHC 34.7 RDW 11.9 Plt Count 152 MPV 12.7 H Immature Gran % 0.2 Neutrophils % 59.7 Lymphocytes % 31.1 Monocytes % 8.0 Eosinophils % 0.8 Basophils % 0.2 Nucleated RBC % 0.0 Absolute Neutrophils 5.26 Absolute Lymphocytes 2.75 Absolute Monocytes 0.71 Absolute Eosinophils 0.07 Absolute Basophils 0.02 Sodium Cancelled 139 Potassium Cancelled 3.9 Chloride Cancelled 104 Carbon Dioxide Cancelled 28.4 Anion Gap Cancelled 6.6 BUN Cancelled 7 Creatinine Cancelled 0.8 Est GFR (CKD-EPI 2020) Cancelled 96.66 Glucose Cancelled 89 Calcium Cancelled 9.4 Total Bilirubin Cancelled 0.59 AST Cancelled 17 ALT Cancelled 28 Alkaline Phosphatase Cancelled 59 Total Protein Cancelled 7.2 Albumin Cancelled 3.3 L Lipase Cancelled 19 Urine Color Yellow Urine Clarity Clear Urine pH 6.0 Ur Specific [place] >= 1.030 H Urine Protein 30 H Urine Ketones Trace H Urine Blood Moderate H Urine Nitrite Negative Urine Bilirubin Negative Urine Urobilinogen 0.2 Ur Leukocyte Esterase Negative Urine RBC 5-10 H Urine WBC 0-2 Ur Epithelial Cells Moderate Urine Crystals Negative Urine Bacteria Rare Urine Casts Negative Urine Mucus Moderate Ur Culture Indicated? No/Sq. Contamination Urine Glucose Negative
--- NOTE | 2024-11-13 22:51 | W.PC.ACHO ---
Registration Status: Primary Language: Preferred Language: ED Information & Data Chief Complaint Abd Prob 11/13/24 16:39 Chief Complaint Abd Prob 11/13/24 16:37 Triage Note 4 of 10 sharp/burning pain 11/13/24 16:37 in upper R abd quad starting with no provocation 3 days ago. Nausea/vomiting after eating any solid foods, persistent diarrhea. No fevers. Most Recent Vital Signs Temperature 36.6 C 11/13/24 19:24 Temperature Source Tympanic 11/13/24 19:24 Pulse 61 11/13/24 19:24 Respiratory Rate 12 11/13/24 19:24 Blood Pressure 128/80 11/13/24 19:24 Blood Pressure Position Sitting 11/13/24 16:39 Pulse Oximetry 100 11/13/24 19:24 Oxygen Delivery Method Room Air 11/13/24 19:24 Oxygen Flow Rate 0 11/13/24 19:24 Pain Level 4 11/13/24 16:39 Allergies codeine Allergy (Mild, Verified 11/13/24 16:40) Skin Rash Active Medications Generic Name Dose Route Start Last Admin Trade Name Brett PRN Reason Stop Dose Admin Iohexol 75 ml 11/13/24 18:30 11/13/24 18:28 Omnipaque 350 Mg/Ml 100 Ml Btl IJ 12/13/24 23:59 75 ml DIRECTED TOVA Administration Sodium Chloride 50 ml 11/13/24 18:30 11/13/24 18:26 Normal Saline - Diluent 50 Ml Vial IJ 50 ml .FOR DI USE TOVA Administration IV IV Catheter Type [Right Saline Lock Antecubital] IV Catheter Gauge [Right 18 Antecubital] Diet Orders Category Date Time Status Nothing Per Oral [DIET] Nutrition 11/13/24 Dinner Active Diagnostics 11/13/24 11/13/24 11/13/24 Range/Units 18:36 17:25 16:41 WBC 8.83 (4.4-10.8) 10^3/uL RBC 4.53 (3.93-5.22) 10^6/uL Hgb 14.9 (11.2-15.7) g/dL Hct 43.0 (36.0-46.0) % MCV 95 (80-95) fL MCH 32.9 (27.0-33.0) pg MCHC 34.7 (32.0-36.0) % RDW 11.9 (11.7-14.6) % Plt Count 152 (130-400) 10^3/uL MPV 12.7 H (8.0-11.0) fL Immature Gran % 0.2 % Neutrophils % 59.7 % Lymphocytes % 31.1 % Monocytes % 8.0 % Eosinophils % 0.8 % Basophils % 0.2 % Nucleated RBC % 0.0 (0.0-0.3) % Absolute Neutrophils 5.26 (1.2-6.7) 10^3/uL Absolute Lymphocytes 2.75 (1.2-3.4) 10^3/uL Absolute Monocytes 0.71 (0.1-0.8) 10^3/uL Absolute Eosinophils 0.07 (0.0-0.7) 10^3/uL Absolute Basophils 0.02 (0.0-0.2) 10^3/uL Sodium 139 Cancelled Potassium 3.9 Cancelled Chloride 104 Cancelled Carbon Dioxide 28.4 Cancelled Anion Gap 6.6 Cancelled BUN 7 Cancelled Creatinine 0.8 Cancelled Est GFR (CKD-EPI 2020) 96.66 Cancelled Glucose 89 Cancelled Calcium 9.4 Cancelled Total Bilirubin 0.59 Cancelled AST 17 Cancelled ALT 28 Cancelled Alkaline Phosphatase 59 Cancelled Total Protein 7.2 Cancelled Albumin 3.3 L Cancelled Lipase 19 Cancelled Urine Color Yellow (Yellow) Urine Clarity Clear (Clear) Urine pH 6.0 (5-8) Ur Specific [place] >= 1.030 H (1.005-1.025) Urine Protein 30 H (Neg-Trace) mg/dL Urine Ketones Trace H (Negative) mg/dL Urine Blood Moderate H (Negative) Urine Nitrite Negative (Negative) Urine Bilirubin Negative (Negative) Urine Urobilinogen 0.2 (Up to 0.2) mg/dL Ur Leukocyte Esterase Negative (Negative) Urine RBC 5-10 H (0-2) HPF Urine WBC 0-2 (0-5) HPF Ur Epithelial Cells Moderate (Negative) HPF Urine Crystals Negative (Negative) HPF Urine Bacteria Rare (Negative) HPF Urine Casts Negative (Negative) LPF Urine Mucus Moderate (Negative) Ur Culture Indicated? No/Sq. Contamination Urine Glucose Negative (Negative) mg/dL [facility]cf[facility]-un-Alca Documentation POC Urine Test Start: 11/13/24 17:10 Freq: .Urine Test Status: Active Protocol: Activity Type Activity Date Activity User E-sign Co-sign Detail Recorded Client Recorded Date Recorded By Document 11/13/24 17:33 AP [id number] 11/13/24 17:33 AP Intake and Output - 24 Hour Total 11/13/24 16:34 thru 11/13/24 19:17 Intake Total 610 Balance 610 Weight 99.79 kg Intake: IV 610 Falls Risk Assessment History of Falls No History 11/13/24 16:39 Contributing Factors No Factors 11/13/24 16:39 Ambulatory Aids Independent 11/13/24 16:39 Tubes/Lines None 11/13/24 16:39 Gait Evaluation No gait disturbance 11/13/24 16:39 Cognition No cognitive impairment 11/13/24 16:39 Fall Total Score 0 11/13/24 16:39 Level of Risk Standard/Low Risk 11/13/24 16:39 Problems (Last Reviewed 01/23/22 @ 08:50 by Sarwat Patricia NP) Nausea & vomiting (Acute) v v v v v v v v v Sending and/or Receiving Nurses: Please use comment section below to note any information pertinent to the patient hand-off not included above. Information / Pt to be admitted with gallstones and is to be admitted for surgical f/u tomorrow. Report received from: FAHEEM Stuart
[2024-11-13 23:00] VITALS: BP 98/64; PULSE 54; RESP 17; TEMP 36.8
--- NOTE | 2024-11-14 00:13 | ED.GENADUL_ITS ---
Discharge Plan Disposition Patient Disposition: Admit to [facility] Discharge Details Admit Date/Time: 11/13/24 21:22 Admit Provider: Juan Melgar Attending Provider: Juan Melgar Primary Care Provider: Tabitha Zapata ED Provider: Daisy Beyer Discharge Data Discharge Date/Time-TO BE ENTERED AT DEPARTURE: 11/14/24 01:16 HPI General Date/Time Provider Initiated Documentation: 11/13/24 16:41 . HPI Narrative: THis 38 yof presents with RUQ painx 1 week. for the past 48 hours pt unable to tolerate any food and very little fluid secondary to pain, n/v. denies exacerbation with fatty foods. denies trauma or radiation. denies chest pain or shortness of breath. denies chance of . denies prior abd surgeries. Related Data Home Medications ?Medication ?Instructions ?Recorded ?Confirmed ibuprofen 600 mg tablet (IBU) 600 mg PO QID PRN pain #14 tabs 01/21/22 11/13/24 albuterol sulfate 90 mcg/actuation 2 puff inhalation QID PRN 04/23/23 11/13/24 aerosol inhaler shortness of breath or wheezing #8.5 grams Previous Rx's ?Medication ?Instructions ?Recorded ibuprofen 600 mg tablet (IBU) 600 mg PO QID PRN pain #14 tabs 01/21/22 albuterol sulfate 90 mcg/actuation 2 puff inhalation QID PRN 04/23/23 aerosol inhaler shortness of breath or wheezing #8.5 grams Allergies Allergy/AdvReac Type Severity Reaction Status Date / Time codeine Allergy Mild Skin Rash Verified 11/13/24 16:40 General Stated Complaint: Abd Prob OREN: 3 Exam Narrative Exam Narrative: distress, ruq tenderness w/o reboud or guarding, no jaundice or icterus, cardiac rrr, lungs ctabi Course Vital Signs Vital signs: Vital Signs Temperature 36.8 C 11/13/24 16:37 Pulse 66 11/13/24 16:37 Respiratory Rate 15 11/13/24 16:37 Blood Pressure 149/101 H 11/13/24 16:37 Pulse Oximetry 98 11/13/24 16:37 Temperature 36.8 C 11/13/24 23:00 Temperature Source Temporal Artery Scan 11/13/24 23:00 Pulse 54 L 01/30/25 23:00 Respiratory Rate 17 11/13/24 23:00 Blood Pressure 98/64 L 11/13/24 23:00 Blood Pressure Position Sitting 11/13/24 16:39 Pulse Oximetry 100 11/13/24 19:24 Oxygen Delivery Method Room Air 11/13/24 23:00 Oxygen Flow Rate 0 11/13/24 23:00 Pain Level 3 11/13/24 23:00 Lab/Test Results Lab/Test Results: Laboratory Tests Range/Units 11/13/24 11/13/24 11/13/24 16:41 17:25 18:36 WBC (4.4-10.8) 10^3/uL 8.83 RBC (3.93-5.22) 10^6/uL 4.53 Hgb (11.2-15.7) g/dL 14.9 Hct (36.0-46.0) % 43.0 MCV (80-95) fL 95 MCH (27.0-33.0) pg 32.9 MCHC (32.0-36.0) % 34.7 RDW (11.7-14.6) % 11.9 Plt Count (130-400) 10^3/uL 152 MPV (8.0-11.0) fL 12.7 H Immature Gran % % 0.2 Neutrophils % % 59.7 Lymphocytes % % 31.1 Monocytes % % 8.0 Eosinophils % % 0.8 Basophils % % 0.2 Nucleated RBC % (0.0-0.3) % 0.0 Absolute Neutrophils (1.2-6.7) 10^3/uL 5.26 Absolute Lymphocytes (1.2-3.4) 10^3/uL 2.75 Absolute Monocytes (0.1-0.8) 10^3/uL 0.71 Absolute Eosinophils (0.0-0.7) 10^3/uL 0.07 Absolute Basophils (0.0-0.2) 10^3/uL 0.02 Sodium Cancelled 139 Potassium Cancelled 3.9 Chloride Cancelled 104 Carbon Dioxide Cancelled 28.4 Anion Gap Cancelled 6.6 BUN Cancelled 7 Creatinine Cancelled 0.8 Est GFR (CKD-EPI 2020) Cancelled 96.66 Glucose Cancelled 89 Calcium Cancelled 9.4 Total Bilirubin Cancelled 0.59 AST Cancelled 17 ALT Cancelled 28 Alkaline Phosphatase Cancelled 59 Total Protein Cancelled 7.2 Albumin Cancelled 3.3 L Lipase Cancelled 19 Urine Color (Yellow) Yellow Urine Clarity (Clear) Clear Urine pH (5-8) 6.0 Ur Specific [place] (1.005-1.025) >= 1.030 H Urine Protein (Neg-Trace) mg/dL 30 H Urine Ketones (Negative) mg/dL Trace H Urine Blood (Negative) Moderate H Urine Nitrite (Negative) Negative Urine Bilirubin (Negative) Negative Urine Urobilinogen (Up to 0.2) mg/dL 0.2 Ur Leukocyte Esterase (Negative) Negative Urine RBC (0-2) HPF 5-10 H Urine WBC (0-5) HPF 0-2 Ur Epithelial Cells (Negative) HPF Moderate Urine Crystals (Negative) HPF Negative Urine Bacteria (Negative) HPF Rare Urine Casts (Negative) LPF Negative Urine Mucus (Negative) Moderate Ur Culture Indicated? No/Sq. Contamination Urine Glucose (Negative) mg/dL Negative POC- Test(urine) Negative Medical Decision Making 38 yo f presenting with n/v RUQ pain. ct was ordered secondary to lack of US and displays stone lodged in gb neck with dilation gb. labs reassuring. pt declines opiates as hx of addiction. apap and toradol. Patient remains in pain and is unable to tolerate p.o. and with the CT imaging, at this point admission is warranted for likely surgical intervention. I have attempted for the last 4 hours p.o. challenge, patient vomited after taking p.o. I discussed case with Dr. Melgar who will admit pt to his service. I did consider gastroenteritis, cholecystitis, colitis. Given that patient has exam with marked right upper quadrant tenderness and unable to tolerate p.o. I think surgical consult recommended at this time Quality:SDOH Health Related Social Needs: Health related social needs housing instability, house d, with risk of homelessness (Z59.811), feeling lonely/isolated (Z60.8), education (Z55.6) PFSH All Active Problems (Updated 11/15/24 @ 00:01 by TAMY HERNANDEZ) Exposure to chlamydia (Acute) Cigarette smoker (Chronic) TMJ (temporomandibular joint syndrome) (Chronic) Social History Smoking/Tobacco Use Status: Current every day Tobacco Type: cigarettes Counseling given: other Details: ADVISED TO QUIT Smoking risk assessment performed?: Yes Alcohol Intake: current Alcohol Intake frequency: 0-2 drinks per day Drug use: Never Substance use type: does not use current occupation: [employer] Do you think of yourself as: straight/heterosexual What type of physical activity do you participate in: none Seatbelt use: always Do you feel safe at home: Yes Do you feel safe in your relationship?: Yes
[2024-11-14] MEDS: ACETAMINOPHEN 1,000 MG/100 ML BAG 400 MG IVPB ×3 (02:12→14:44)
[2024-11-14 04:40] VITALS: BP 103/61; PULSE 63; RESP 17; TEMP 36.1; O2SAT 100
[2024-11-14] MEDS: Heparin 5,000 UNITS/ML VIAL 5000 UNITS SC ×2 (05:29→14:42)
[2024-11-14 06:36] LABS: Abs Immature Grans 0.01 10^3/uL (0.0-0.06); Absolute Basophil Count 0.01 10^3/uL (0.0-0.2); Absolute Eosinophil Count 0.07 10^3/uL (0.0-0.7); Absolute Lymphocyte Count 2.86 10^3/uL (1.2-3.4); Absolute Monocyte Count 0.55 10^3/uL (0.1-0.8); Absolute Neutrophil Count 3.16 10^3/uL (1.2-6.7); Basophils % 0.2 %; Eosinophils % 1.1 %; HCT 35.9 % (36.0-46.0); HGB 12.4 g/dL (11.2-15.7); Immature Grans % 0.2 %; Lymphocytes % 42.9 %; MCH 32.5 pg (27.0-33.0); MCHC 34.5 % (32.0-36.0); MCV 94 fL (80-95); MPV 12.7 fL (8.0-11.0); Monocytes % 8.3 %; Neutrophils % 47.3 %; Platelet Count 121 10^3/uL (130-400); RBC 3.81 10^6/uL (3.93-5.22); RDW 11.9 % (11.7-14.6); RDW-SD 41.3 fL; WBC 6.66 10^3/uL (4.4-10.8)
[2024-11-14 07:24] LABS: ALT 26 U/L (14-59); AST 15 U/L (15-37); Albumin 3.1 g/dL (3.4-5.0); Alkaline Phosphatase 55 U/L (46-116); Anion Gap 8.8 mmol/L (3-11); BUN 7 mg/dL (7-18); Bilirubin, Total 0.62 mg/dL (0.2-1.0); CO2 27.2 mmol/L (21.0-32.0); CREATININE 0.8 mg/dL (0.55-1.02); Calcium 8.7 mg/dL (8.5-10.1); Chloride 108 mmol/L (98-107); Estimated GFR 96.66 (mL/min/1.73m2); Glucose 88 mg/dL (74-106); Potassium 3.8 mmol/L (3.5-5.1); Sodium 144 mmol/L (136-145); Total Protein 6.5 g/dL (6.4-8.2)
--- NOTE | 2024-11-14 09:00 | PGE_ITS ---
Date of Service Date of service: 11/14/24 Time of Service: 09:00 Assessment and Plan Assessment and plan (1) Nausea & vomiting: Status: Acute Assessment and plan: Ai is feeling much better this morning. No abdominal pain, nausea or vomiting. Will trial PO intake this morning. Subjective Subjective Interval history since last seen: Arrive with Ai sitting up in bed. She states that she is not having any nausea at this time. She last vomited yesterday afternoon. She describes she is feeling much better this morning and looking forward to drinking some coffee. Exam Const General: cooperative, healthy appearing and comfortable Orientation: alert and oriented x3 Resp Effort & Inspection: normal respiratory effort, no audible wheezes and no cough GI Inspection: normal to inspection and non-distended Palpation: soft, no guarding and nontender Objective Last Vital Signs Temp 36.1 C L 11/14/24 04:40 Pulse 63 11/14/24 04:40 Resp 17 11/14/24 04:40 BP 103/61 11/14/24 04:40 Pulse Ox 100 11/14/24 04:40 Laboratory Results - last 24 hr 11/13/24 11/13/24 11/13/24 16:41 17:25 18:36 WBC 8.83 RBC 4.53 Hgb 14.9 Hct 43.0 MCV 95 MCH 32.9 MCHC 34.7 RDW 11.9 Plt Count 152 MPV 12.7 H Immature Gran % 0.2 Neutrophils % 59.7 Lymphocytes % 31.1 Monocytes % 8.0 Eosinophils % 0.8 Basophils % 0.2 Nucleated RBC % 0.0 Absolute Neutrophils 5.26 Absolute Lymphocytes 2.75 Absolute Monocytes 0.71 Absolute Eosinophils 0.07 Absolute Basophils 0.02 Sodium Cancelled 139 Potassium Cancelled 3.9 Chloride Cancelled 104 Carbon Dioxide Cancelled 28.4 Anion Gap Cancelled 6.6 BUN Cancelled 7 Creatinine Cancelled 0.8 Est GFR (CKD-EPI 2020) Cancelled 96.66 Glucose Cancelled 89 Calcium Cancelled 9.4 Total Bilirubin Cancelled 0.59 AST Cancelled 17 ALT Cancelled 28 Alkaline Phosphatase Cancelled 59 Total Protein Cancelled 7.2 Albumin Cancelled 3.3 L Lipase Cancelled 19 Urine Color Yellow Urine Clarity Clear Urine pH 6.0 Ur Specific [place] >= 1.030 H Urine Protein 30 H Urine Ketones Trace H Urine Blood Moderate H Urine Nitrite Negative Urine Bilirubin Negative Urine Urobilinogen 0.2 Ur Leukocyte Esterase Negative Urine RBC 5-10 H Urine WBC 0-2 Ur Epithelial Cells Moderate Urine Crystals Negative Urine Bacteria Rare Urine Casts Negative Urine Mucus Moderate Ur Culture Indicated? No/Sq. Contamination Urine Glucose Negative 11/14/24 06:05 WBC 6.66 RBC 3.81 L Hgb 12.4 D Hct 35.9 L MCV 94 MCH 32.5 MCHC 34.5 RDW 11.9 Plt Count 121 L MPV 12.7 H Immature Gran % 0.2 Neutrophils % 47.3 Lymphocytes % 42.9 Monocytes % 8.3 Eosinophils % 1.1 Basophils % 0.2 Nucleated RBC % 0.0 Absolute Neutrophils 3.16 Absolute Lymphocytes 2.86 Absolute Monocytes 0.55 Absolute Eosinophils 0.07 Absolute Basophils 0.01 Sodium 144 Potassium 3.8 Chloride 108 H Carbon Dioxide 27.2 Anion Gap 8.8 BUN 7 Creatinine 0.8 Est GFR (CKD-EPI 2020) 96.66 Glucose 88 Calcium 8.7 Total Bilirubin 0.62 AST 15 ALT 26 Alkaline Phosphatase 55 Total Protein 6.5 Albumin 3.1 L Lipase Urine Color Urine Clarity Urine pH Ur Specific [place] Urine Protein Urine Ketones Urine Blood Urine Nitrite Urine Bilirubin Urine Urobilinogen Ur Leukocyte Esterase Urine RBC Urine WBC Ur Epithelial Cells Urine Crystals Urine Bacteria Urine Casts Urine Mucus Ur Culture Indicated? Urine Glucose Time Spent with Patient Time Spent with Patient: <25 minutes Time was spent: preparing to see the patient(eg.review tests), obtaining and/or reviewing separately otained hiistory and counseling the patient
--- NOTE | 2024-11-14 09:10 | INITIAL_ITS ---
Date of service: 11/14/24 Time of Service: 09:10 Care Management Initial Assmt Initial Assessment Reason for Hospitalization: Nausea and Vomiting Functional Status/Living Situation Patient Presentation: Ai was sitting up in bed when CM met with her. She is pleasant and easily engages in conversation and reports that she is feeling better. She is advancing her diet and is tolerating fluids. She is planning to discharge home later today. Per pt, she is raising her nephew in addition to her 2 children. Resources provided. Town of Residence: [place] Resides with: Child (2 children and nephew) Significant Other/Family: Local Natural Supports: Supportive family Employment Status: Employed ([employer] in [place]) Instrumental Activities of Daily Living (ADLs): Independent Medications Medication Management: No Issues/Barriers identified Advance Directives Advance Directives: Do you have an Advance Directive: N 04/28/13 13:35 AD On File at [facility]: N 04/28/13 13:35 Date Asked 11/13/24 11/13/24 17:57 AD Date Reviewed 11/13/24 11/13/24 21:39 COLST On File at [facility] No 11/13/24 21:39 COLST Date Scanned Code Status Resuscitation Status Full Code Portal Pt does not currently have a portal and education provided: Yes Insurance Coverage/Financial Issues Insurance: Medicaid Financial Issues: Ai will reach out to [email or web address], if needed. Care Team Visit Care Team Role Provider Type Tabitha Zapata NP Primary Care Provider NURSE PRACTITIONER YASMEEN Laboy Emergency Provider [employer] Juan Melgar MD Admit Provider [facility] STAFF PHYSICIAN Attending Provider Discharge Potential Discharge Needs: Surgical F/U Appt Anticipated Barriers to Discharge: None Identified Patient/Family Education Needs: Review discharge instructions, discuss Ask Me Three Transportation: Private vehicle Plan: Discharge home with a plan to follow up with community providers. No new services. Family will transport, CM will follow. Social Determinants of Health Screening Social Determinants of Health last assessed: 11/14/24 Will the Patient Participate in the Screening?: Yes Do you worry about having a steady place to live?: yes What is your living situation today?: I do not have steady housing Problems where you live: no known problems In the past 12 months, have you had to go without electric, gas, oil or water in your home?: no Have you or anyone in your house had to go without enough food to eat?: no Has lack of transportation kept you from medical appointments or from doing things needed for daily living?: no Has anyone in your life made you feel unsafe or unsupported?: no How hard is it for you to pay for the very basics like food, housing, medical care, and heating? Would you say it is:: Not hard at all Do you want help finding or keeping work or a job?: I do not need or want help If for any reason you need help with day-to-day activities such as bathing, preparing meals, shopping, managing finances, etc., do you get the help you need?: I don?t need any help How often do you feel lonely or isolated from those around you?: Rarely Do you speak a language other than Irish at home?: Yes Does the patient want assistance with any of the above?: No Health Related Social Needs Health related social needs: housing instability, housed, with risk of homelessness (Z59.811), feeling lonely/isolated (Z60.8) and education (Z55.6) PFSH All Active Problems (Updated 11/14/24 @ 09:04 by YASMEEN Kamara) Nausea & vomiting (Acute) Exposure to chlamydia (Acute) Cigarette smoker (Chronic) TMJ (temporomandibular joint syndrome) (Chronic) Social History Smoking/Tobacco Use Status: Current every day Tobacco Type: cigarettes Counseling given: other Details: ADVISED TO QUIT Smoking risk assessment performed?: Yes Alcohol Intake: current Alcohol Intake frequency: 0-2 drinks per day Drug use: Never Substance use type: does not use current occupation: [employer] Do you think of yourself as: straight/heterosexual What type of physical activity do you participate in: none Seatbelt use: always Do you feel safe at home: Yes Do you feel safe in your relationship?: Yes
[2024-11-14] MEDS: Normal Saline 1,000 ML 125 ML IV (09:41)
[2024-11-14 11:25] VITALS: BP 110/66; PULSE 50; RESP 16; TEMP 36.4; O2SAT 97
--- NOTE | 2024-11-14 13:50 | CMDISCH_ITS ---
Date of service: 11/14/24 Time of Service: 13:50 LACE Index Scoring Tool Questions: Length of Stay (in days): 1 Was the patient admitted via the E.D.?: Yes E.D. Visits: 1 Answers: Total Score: 5 Risk of Readmission: Low Risk Care Management Discharge Plan Reason for Hospitalization: Nausea and Vomiting Discharge Plan: Ai is discharged home via private vehicle with family. Pt will follow up with community providers and her discharge plan of care as recommended by surgery. No new services are ordered prior to discharge. Patient/Family Education Needs: Review discharge instructions, limitations, medications and plan to follow up with community providers. Discuss ask me three. SDOH Health Related Social Needs: Health related social needs housing instability, house d, with risk of homelessness (Z59.811), feeling lonely/isolated (Z60.8), education (Z55.6)
--- NOTE | 2024-11-14 14:33 | PHA.REVIEW2 ---
Pharmacy Admission Review Admission Clinical Review Admission Pharmacy Review: Nausea & vomiting (Acute) codeine Allergy (Mild, Verified 11/13/24 16:40) Skin Rash Resuscitation Status Full Code Height 5 ft 6 in Weight 99.79 kg Comments Comments/Follow Ups: Watch for IV to PO switch - patient trialing PO intake today Pharmacy Admission Review Renal Dosing Renal Dosing: BUN 7 mg/dL (7-18) 11/14/24 06:05 Creatinine 0.8 mg/dL (0.55-1.02) 11/14/24 06:05 Medications needing adjustments: Reviewed (CrCl 113.64 mL/min) List of meds needing interventions: Current medications are okay Anticoagulation Anticoagulation: Hgb 12.4 g/dL (11.2-15.7) D 11/14/24 06:05 Hct 35.9 % (36.0-46.0) L 11/14/24 06:05 Plt Count 121 10^3/uL (130-400) L 11/14/24 06:05 Creatinine 0.8 mg/dL (0.55-1.02) 11/14/24 06:05 DVT Prophylaxis: Reviewed Medications: Heparin (q8h) Relevant Labs Relevant Labs: Sodium 144 mmol/L (136-145) 11/14/24 06:05 Potassium 3.8 mmol/L (3.5-5.1) 11/14/24 06:05 Chloride 108 mmol/L (98-107) H 11/14/24 06:05 Electrolytes, C-Reactive P, ESR: Reviewed Cardiac Review BP, HR, EF%: Reviewed (BP WNL, HR 50) QTc Review QTc: Reviewed (No EKG on file) IV to PO Switch IV Medications: Reviewed (APAP, ketorolac and ondansetron - trialing PO intake today per provider note) Home Meds Home Med List reviewed: Reviewed Relevent Home Meds Not ordered & why?: ibuprofen (PRN and currently has order for ketorolac) Current Meds Current Medication Order Review: Reviewed Comments Comments/Follow Ups: Watch for IV to PO switch - patient trialing PO intake today
--- NOTE | 2024-11-14 15:00 | W.PM.DS.N ---
Date of service: 11/14/24 Time of Service: 15:01 DS: Diagnosis Discharge Diagnosis (1) Nausea & vomiting: Status: Acute Asessment and Plan: Discharge home with outpatient follow-up Discharge Plan Disposition Patient Disposition: Home Condition: Improving Discharge Details Reason For Visit: nausea and vomiting Admit Date/Time: 11/13/24 21:22 Admit Provider: Juan Melgar Attending Provider: Juan Melgar [facility] Hospital Course: Ai is 38 years old. She came to the hospital several days with nausea and vomiting. Labs were all within normal limits, and she underwent a CT scan that demonstrated cholelithiasis. She was admitted for a short period of observation, and diet was advanced which she tolerated with resolution of her symptoms. She is discharged home with outpatient follow-up for long-term management of her gallstones Home Meds and New Rx's Prescriptions: No Action albuterol sulfate 90 mcg/actuation HFA aerosol inhaler 2 puff inhalation QID PRN (Reason: shortness of breath or wheezing) Qty: 8.5 1RF ibuprofen [IBU] 600 mg tablet 600 mg PO QID PRN (Reason: pain) Qty: 14 0RF Discharge Instructions Instructions: Gallstones (DC) Additional Instructions: Ai, were all certainly glad that you are making a nice recovery from your nausea and vomiting. It seems like you most likely had a viral gastroenteritis which caused your symptoms. I would expect you to make a full recovery from this in the days to come. I did encourage you to continue with basic hydration, and to eat which you can when you have an appetite. As am sure you probably know, during the workup, it was noted that you have a gallstone within your gallbladder. Although I think this is unlikely causing your symptoms, in the long run, elective removal of your gallbladder may be a safe option for you. I will have my office reach out to you to schedule a follow-up visit in our office within the next few weeks talk a little bit about gallstones and different treatments. If you need anything in the meantime, please do not hesitate to call. Activity:: Activity as Tolerated Equipment/Supplies:: No Equipment Needed Diet:: As Tolerated DS: Summary Time Spent with Patient providing and/or coordinating discharge services: Less than 30 minutes Status at Discharge Functional status at discharge: independent ambulation Overall status at discharge: patient is progressing back to baseline Mental Status: mental status grossly normal Speech and Movement: speech and movement normal Mood: congruent mood Affect: normal affect Quality:SDOH Health Related Social Needs: Health related social needs housing instability, housed, with risk of homelessness (Z59.811), feeling lonely/isolated (Z60.8), education (Z55.6) Exam Psych Mental Status: mental status grossly normal Speech and Movement: speech and movement normal Mood: congruent mood Affect: normal affect DS: Data Vitals/I&O Vitals and I&O: Vital Signs Temperature 97.5 F L 11/14/24 11:25 Temperature Source Temporal Artery Scan 11/14/24 11:25 Pulse 50 L 11/14/24 11:25 Pulse Rhythm Regular 11/14/24 06:18 Respiratory Rate 16 11/14/24 11:25 Respiratory Effort Normal 11/14/24 06:18 Respiratory Depth Normal 11/14/24 06:18 Respiratory Pattern Normal 11/14/24 06:18 Blood Pressure 110/66 11/14/24 11:25 Blood Pressure Position Sitting 11/13/24 16:39 Pulse Oximetry 97 11/14/24 11:25 Oxygen Delivery Method Room Air 11/14/24 11:25 Oxygen Flow Rate 0 11/14/24 11:25 Pain Level 2 11/14/24 06:18 Intake & Output 11/13/24 11/14/24 11/14/24 23:59 11:59 23:59 Intake Total 610 / 610 200 / 200 Output Total 150 / 350 200 / 350 Balance 610 / 610 50 / -150 -200 / -150 Weight 220 lb 219 lb 15.988 oz Intake: IV 610 / 610 200 / 200 Output: Urine 150 / 350 200 / 350 Other: Urine Color Yellow Yellow Urine Appearance Clear Clear Urine Odor Normal Normal Data Completed and Pending Labs on day of discharge: Labs from last 24 hours 11/14/24 11/13/24 11/13/24 06:05 18:36 17:25 WBC 6.66 8.83 RBC 3.81 L 4.53 Hgb 12.4 D 14.9 Hct 35.9 L 43.0 MCV 94 95 MCH 32.5 32.9 MCHC 34.5 34.7 RDW 11.9 11.9 Plt Count 121 L 152 MPV 12.7 H 12.7 H Immature Gran % 0.2 0.2 Neutrophils % 47.3 59.7 Lymphocytes % 42.9 31.1 Monocytes % 8.3 8.0 Eosinophils % 1.1 0.8 Basophils % 0.2 0.2 Nucleated RBC % 0.0 0.0 Absolute Neutrophils 3.16 5.26 Absolute Lymphocytes 2.86 2.75 Absolute Monocytes 0.55 0.71 Absolute Eosinophils 0.07 0.07 Absolute Basophils 0.01 0.02 Sodium 144 139 Cancelled Potassium 3.8 3.9 Cancelled Chloride 108 H 104 Cancelled Carbon Dioxide 27.2 28.4 Cancelled Anion Gap 8.8 6.6 Cancelled BUN 7 7 Cancelled Creatinine 0.8 0.8 Cancelled Est GFR (CKD-EPI 2020) 96.66 96.66 Cancelled Glucose 88 89 Cancelled Calcium 8.7 9.4 Cancelled Total Bilirubin 0.62 0.59 Cancelled AST 15 17 Cancelled ALT 26 28 Cancelled Alkaline Phosphatase 55 59 Cancelled Total Protein 6.5 7.2 Cancelled Albumin 3.1 L 3.3 L Cancelled Lipase 19 Cancelled Urine Color Urine Clarity Urine pH Ur Specific [place] Urine Protein Urine Ketones Urine Blood Urine Nitrite Urine Bilirubin Urine Urobilinogen Ur Leukocyte Esterase Urine RBC Urine WBC Ur Epithelial Cells Urine Crystals Urine Bacteria Urine Casts Urine Mucus Ur Culture Indicated? Urine Glucose 11/13/24 16:41 WBC RBC Hgb Hct MCV MCH MCHC RDW Plt Count MPV Immature Gran % Neutrophils % Lymphocytes % Monocytes % Eosinophils % Basophils % Nucleated RBC % Absolute Neutrophils Absolute Lymphocytes Absolute Monocytes Absolute Eosinophils Absolute Basophils Sodium Potassium Chloride Carbon Dioxide Anion Gap BUN Creatinine Est GFR (CKD-EPI 2020) Glucose Calcium Total Bilirubin AST ALT Alkaline Phosphatase Total Protein Albumin Lipase Urine Color Yellow Urine Clarity Clear Urine pH 6.0 Ur Specific [place] >= 1.030 H Urine Protein 30 H Urine Ketones Trace H Urine Blood Moderate H Urine Nitrite Negative Urine Bilirubin Negative Urine Urobilinogen 0.2 Ur Leukocyte Esterase Negative Urine RBC 5-10 H Urine WBC 0-2 Ur Epithelial Cells Moderate Urine Crystals Negative Urine Bacteria Rare Urine Casts Negative Urine Mucus Moderate Ur Culture Indicated? No/Sq. Contamination Urine Glucose Negative PFSH All Active Problems (Updated 11/14/24 @ 09:04 by YASMEEN Kamara) Nausea & vomiting (Acute) Exposure to chlamydia (Acute) Cigarette smoker (Chronic) TMJ (temporomandibular joint syndrome) (Chronic) Social History Smoking/Tobacco Use Status: Current every day Tobacco Type: cigarettes Counseling given: other Details: ADVISED TO QUIT Smoking risk assessment performed?: Yes Alcohol Intake: current Alcohol Intake frequency: 0-2 drinks per day Drug use: Never Substance use type: does not use current occupation: [employer] Do you think of yourself as: straight/heterosexual What type of physical activity do you participate in: none Seatbelt use: always Do you feel safe at home: Yes Do you feel safe in your relationship?: Yes Time Spent with Patient Time Spent with Patient: <45 minutes Time was spent: preparing to see the patient(eg.review tests), indepentently interpreting results and care coordination
== END 2024-11-14 17:10 | disposition home or self-care (01) ==
LOC: ER 21:39 → MS 22:54
PROVIDERS: Admitting Provider Student in an Organized Health Care Education/Training Program; Emergency Provider Physician Assistant; PCP Nurse Practitioner Family; Visit Provider Student in an Organized Health Care Education/Training Program
DX: R11.2 Nausea with vomiting, unspecified (principal); R10.11 Right upper quadrant pain; F17.210 Nicotine dependence, cigarettes, uncomplicated; Z79.811 Long term (current) use of aromatase inhibitors; K80.20 Calculus of gallbladder without cholecystitis without obstruction; Z60.8 Other problems related to social environment; Z55.6 Problems related to health literacy
CPT/HCPCS: 36415; 80053; 81025; 83690; 96361; 96365; 96372; 96375; 96376; 99285; 74177; 81003; 81015; 85025; G0378; J0131; J0780; J1644; J1885; J2405; J3490

== ENCOUNTER 2024-12-24 06:00 | Day surgery (SDC) | payer MEDICAID, SELFPAY ==
[2024-12-24] VITALS (37 sets, daily range): BP systolic 82–119; BP diastolic 41–76; PULSE 42–70; RESP 8–22; TEMP 36.1–36.6; O2SAT 91–100; BMI 33.7
[2024-12-24] MEDS: Acetaminophen 500 MG TAB 1000 MG PO (06:48)
[2024-12-24] MEDS: Celecoxib 200 MG CAP PO (06:48)
[2024-12-24] MEDS: Gabapentin 300 MG CAP 600 MG PO (06:48)
--- NOTE | 2024-12-24 07:06 | W.ANESPRE ---
General Info Date of Service Date Performed: 12/24/24 Height: 5 ft 6 in Weight: 94.8 kg Body Mass Index (BMI): 33.7 Surgical Procedure: Operation Date: 12/24/24 07:40 Proposed Procedure Side Surgeon p Cholecystectomy Laparoscopic Farhad Fang MD Actual Procedure Side Surgeon p Cholecystectomy Laparoscopic Farhad Fang MD Pre-Op Diagnosis Post-Op Diagnosis Gallstones Meds Allergies and Home Medications Allergies Allergy/AdvReac Type Severity Reaction Status Date / Time codeine Allergy Mild Skin Rash Verified 12/24/24 06:30 Home Medication ?Medication ?Instructions ?Recorded ibuprofen 600 mg tablet (IBU) 600 mg PO QID PRN pain #14 tabs 01/21/22 albuterol sulfate 90 mcg/actuation 2 puff inhalation QID PRN 04/23/23 aerosol inhaler shortness of breath or wheezing #8.5 grams Current Visit Medications: Current Medications Generic Name Dose Route Start Last Admin Trade Name Freq PRN Reason Stop Dose Admin Acetaminophen 1,000 mg 12/24/24 06:00 12/24/24 06:48 Acetaminophen 500 Mg Tab PO 12/24/24 23:59 1,000 mg PREOP TOVA Administration Celecoxib 200 mg 12/24/24 06:00 12/24/24 06:48 Celecoxib 200 Mg Cap PO 12/24/24 23:59 200 mg PREOP TOVA Administration Gabapentin 600 mg 12/24/24 06:00 12/24/24 06:48 Gabapentin 300 Mg Cap PO 12/24/24 23:59 600 mg PREOP TOVA Administration Ringer's Solution 1,000 mls @ 80 mls/hr 12/24/24 06:00 IV 12/24/24 23:59 INFUSION TOVA Cefazolin Sodium/Dextrose 2 gm in 50 mls @ 100 mls/hr 12/24/24 06:00 Ancef Duplex IVPB 12/24/24 23:59 PREOP TOVA IV Miscellaneous Supplies 1 each 12/24/24 06:00 Iv Access IV 12/24/24 23:59 DIRECTED TOVA Indocyanine Green 5 mg 12/24/24 06:00 Indocyanine Green 25 Mg Vial IVP 12/24/24 16:00 DIRECTED TOVA Sodium Chloride 0 ml 12/24/24 06:00 Normal Saline Flush 10 Ml Syr IV 12/24/24 23:59 PRN PRN Sodium Chloride 0 ml 12/24/24 06:00 Normal Saline 10 Ml Vial IJ 12/24/24 23:59 DIRECTED PRN Sterile Water 0 ml 12/24/24 06:00 Water,Injection,Sterile 10 Ml Vial IJ 12/24/24 23:59 DIRECTED PRN PFSH Active Problems Active Problems: Problem Status Onset Code Gallstones Acute K80.20 Exposure to chlamydia Acute Z20.2 Cigarette smoker Chronic F17.210 TMJ (temporomandibular joint syndrome) Chronic M26.609 Medical History Medical History Comments:: Last cigarette 12/23 2300; marijauna daily, last smoke 1800 Surgical History Surgical History Hx of tubal ligation Tobacco Smoking/Tobacco Use Status: Current every day Tobacco Type: cigarettes Smoking cigarettes per day: 10 Counseling given: other Alcohol Alcohol Intake: former Substance Use Substance use: Daily Substance use type: marijuana Vital Signs and Lab Results Vital Signs Most Recent Vital Signs in EMR: Most Recent Vital Signs Temp Pulse Resp BP Pulse Ox 36.2 C L 61 18 119/76 98 12/24/24 06:15 12/24/24 06:15 12/24/24 06:15 12/24/24 06:15 12/24/24 06:15 Lab Results Blood Type / Crossmatch: No Data to Display Complete Blood Count: No Data to Display Complete Metabolic Panel: No Data to Display Liver Function Panel: No Data to Display Coagulation Panel: No Data to Display Cardiac Panel: No Data to Display Arterial Blood Gas: No Data to Display Venous Blood Gas: No Data to Display Pancreas Panel: No Data to Display Thyroid Panel: No Data to Display Infectious Disease: No Data to Display Blood Cultures: No Data to Display Toxicology Panel: No Data to Display Panel: No Data to Display Anesthesia Assessment and Plan Anesthesia History Personal History: No History of General Anesthesia Family History: No Family History of Anesthesia Complications Exercise Tolerance Exercise Tolerance: Metabolic Equivalents>4 Pertinent Negatives Pertinent Negatives: No Symptoms of GERD Cardiac & Pulmonary Exam Cardiac Exam: Normal S1/S2 Heart Sounds Pulmonary Exam: Clear Bilateral Breath Sounds Implantable Cardiac Device Does patient have a Pacemaker or an ICD?: No Airway Exam Known Difficult Airway: No Mallampati Class: 2 (TMJ Hx, Left) Mouth Opening: Normal (> 3cm) Thyromental Distance: Greater than 3 cm Neck Range of Motion: Full ROM Neck Circumference: Normal Teeth Condition: Generalized Poor Dentition ASA Classification ASA Score: ASA 2 Emergency Case?: No NPO Status NPO Status: NPO Clears >2 hours, Solids >8 hours Status Status: Not Relevant due to Medical History (Tubal) Anesthesia Plan Resuscitation Status: Full Code Anesthesia Technique: General Anesthesia Airway Planned: Endotracheal Tube Monitors Used: Standard Monitors and SedLine Preoperative Comments:: Smoker, Tobacco & Cannabis. No ETOH
[2024-12-24] MEDS: Normal Saline Flush 10 ML SYR IV (07:15)
[2024-12-24] MEDS: Lactated Ringers 1,000 ML 80 ML IV ×2 (07:15→09:42)
[2024-12-24] MEDS: Indocyanine green 25 MG VIAL 5 MG IVP (07:16)
[2024-12-24] MEDS: Water,Injection,Sterile 10 ML VIAL IJ (07:17)
[2024-12-24] MEDS: ceFAZolin 2 GM/50 ML BAG IVPB (07:35)
[2024-12-24] MEDS: Bupivacaine 0.25% Pres-Free W/EPI 30 ML VIAL (07:57)
--- NOTE | 2024-12-24 09:30 | GB_PTH ---
PATIENT: Ai James LOC: [facility] U#:[id number] AGE/SX: 39/F ROOM: RE12/24/[address]: Farhad Fang MD : 1985 BED: DIS: 12/24/2024 SPEC #: [id number] RECD: 12/24/24 12:43 STATUS: LOUANN RESanjay #: [id number] ITZEL: 12/24/24 09:[address]: Farhad Fang DEPT: Surgical Specimen RECD BY: Daisy Ledezma ENTERED: 12/24/24 12:44 SP TYPE: GB STEF DR: HECTOR Reynolds Tissues: 1 - GALLBLADDER Procedures: GROSS AND MICRO LEVEL 3 Comments: [id number]
--- NOTE | 2024-12-24 09:54 | PDOC.DSDIS_ITS ---
Date of service: 12/24/24 Discharge Plan Disposition Patient Disposition: Home Condition: Good Discharge Details Reason For Visit: Laparoscopic cholecystectomy Attending Provider: Farhad Fang Primary Care Provider: Tabitha Zapata Home Meds and New Rx's Prescriptions: New tramadol 50 mg tablet 50 mg PO Q8H PRNQty: 12 0RF Rx Instructions: Take 1 tablet by mouth up to every 8 hours if needed for severe pain. Continued albuterol sulfate 90 mcg/actuation HFA aerosol inhaler 2 puff inhalation QID PRN (Reason: shortness of breath or wheezing) Qty: 8.5 1RF ibuprofen [IBU] 600 mg tablet 600 mg PO QID PRN (Reason: pain) Qty: 14 0RF Discharge Instructions Instructions: Cholecystectomy, Laparoscopic Surgery Additional Instructions: Ai, it was great to see you today, and hopefully will make a quick recovery from the operation. Your gallbladder was quite inflamed, so I am quite relieved that you decided to go forward with cholecystectomy. Hopefully this will protect you in the future. Because of the amount of inflammation, we had to modify the technique a little bit, which does not really make any significant difference with regards to your recovery. I have added a prescription for some pain medications if you need them as part of the recovery time. Try to be up and moving around a little bit more more each day, and you should get back to your old self before you know it. If you need anything or have any questions at all, please do not hesitate to call, otherwise I look forward to seeing you at your follow-up visit 1. Resume all of your regular medications. 2. Use ice packs over the incisions if needed to help with pain. 3. Alternate [id number] Tylenol and ibuprofen every 6 hours for the first 2 days, then use as needed. Use the prescription for pain medication if you need that in addition to the Tylenol and ibuprofen. 4. Leave bandages in place for 24 hours, then remove. 5. Shower with warm soapy water. Pat dry. Feel free to replace the bandages if that is more comfortable with your clothing.. 6. No soaking or tub baths until I see you in the office. 7. No heavy lifting until I see you in the office. 8. Call the office (or go directly to the emergency room after hours) if you no arina any of the following: Develop chills (warm to touch), or if you have a thermometer and your temperature is above 101 Difficulty breathing or difficultly swallowing Persistent vomiting Any bleeding ? exceeding one tablespoon 9. Call your physician if the site where your intravenous was started becomes red, swollen, painful, and warm to touch. Referrals: Farhad Fang MD [ [facility] STAFF PHYSICIAN] - Activity:: No heavy lifting Remove Dressings/Wound Care:: 24 hours Shower/Bathe:: 24 hours Diet:: As Tolerated Discharge Orders Discharge Orders: Discharge Order (Routine); Ordered 12/24/24 Ordered By: Farhad Fang DS: Diagnosis Discharge Diagnosis (1) Gallstones: Status: Acute Asessment and Plan: Routine postoperative follow-up
--- NOTE | 2024-12-24 10:00 | W.PM.OP ---
Operative Note Operative Note PRE-OP DIAGNOSIS: Symptomatic biliary colic POST-OP DIAGNOSIS: other (Chronic cholecystitis) PROCEDURE: Laparoscopic cholecystectomy SURGEON: Farhad Fang DIRECTOR OF DISTANCE LEARNING: Blayne Figueroa ANESTHESIA TYPE: Local By Surgeon and General LMA/ETT Refer to Anesthesia Record ESTIMATED BLOOD LOSS: 25 PATHOLOGY: other (Gallbladder) COMPLICATIONS: None Patient was transported to: PACU Patient's condition: stable Indications: Ai is a 39-year-old woman with symptomatic biliary colic Findings: Chronic cholecystitis Procedure Description: After satisfactory induction of general anesthesia, I prepped and draped the abdomen in usual fashion. Next, I began with a periumbilical incision. I dissected down to the fascia and elevated it with Rhett clamps. I incised it sharply. Next, I passed a 12 mm operating port in the umbilical site. I secured it to the fascia with 0 Vicryl stitches. I then insufflated the peritoneal cavity. Next I inserted a 5 mm 30 degree scope and examined the underlying viscera. There was no evidence of injury created upon entry. I then placed the patient in some reverse Trendelenburg and left side down positioning. Then, with the assistance of the laparoscope, I used local anesthetic to anesthetize the midepigastric and 2 right upper quadrant port sites. Under the vision of the laparoscope, I passed 3 more 5 mm ports. I then grasped the gallbladder fundus and elevated cephalad. The gallbladder contained large gallstones. I began by dissecting the gallbladder infundibulum. I worked in a lateral to medial fashion. There were dense adhesions of the greater omentum all over a thickened gallbladder wall. Dissection was quite tedious. As I brought the dissection down towards the cystic neck, the triangle of Calot was quite difficult to safely dissect. There were dense adhesions of thickened tissue that was friable with dissection. In an effort to minimize any risk to the common bile duct or other critical structures, I turned my attention to a dome down approach. I upsized the port in the mid epigastrium to a 12 mm port, and using a combination of blunt dissection and electrocautery, I the gallbladder off the gallbladder fossa. Once the posterior wall of the gallbladder was completely dissected free, and once I had all of the soft tissue cleared to the distal aspect of the cystic neck, I divided this from the cystic duct with a MESSI stapler. The gallbladder was placed in an Endo Catch bag, and removed by way of the midepigastric site. The surgical field was examined. It was hemostatic. There was no evidence of any bile leakage. Staple line looked healthy, and the remnant of the cystic neck appeared quite small and contracted, and I do not suspect this will cause any problems in the future. Next, I remove the 12 mm midepigastric port, and close this with a Shyam Kennedy wound closure device using 0 Vicryl stitches. The other 5 mm ports were removed, and there was no evidence of any bleeding. Finally, the Simon port was removed from the umbilicus, and the fascia was reapproximated with 0 Vicryl subcutaneous tissues were irrigated clean, and the skin was closed with subcuticular stitches bandages. Patient was then awoken from the anesthetic and transferred to the recovery unit. Date of Procedure: 12/24/24
[2024-12-24] MEDS: HYDROmorphone 2 MG/ML SYR IVP (10:48)
[2024-12-24] MEDS: Normal Saline 10 ML VIAL IJ (10:48)
--- NOTE | 2024-12-24 12:14 | W.ANESPOSTOP ---
Postoperative Evaluation Date, Time and Location Date Performed: 12/24/24 Time Performed: 12:15 Patient Location: Day Surgery Unit Vital Signs Most Recent Imported Vital Signs: Most Recent Vital Signs Temp Pulse Resp BP Pulse Ox 36.1 C L 57 L 15 94/56 L 100 12/24/24 11:37 12/24/24 11:37 12/24/24 11:37 12/24/24 11:37 12/24/24 11:37 Pain Score Most Recent Pain Score: Most Recent Pain Score Pain Level 4 12/24/24 11:37 Assessment Mental Status: Awake (Alert & Oriented to Patient Baseline) Airway and Respiratory Function: Patent airway with normal (patient baseline) respiratory exam Cardiovascular Function: Hemodynamically Stable Hydration Status: Adequately Hydrated Nausea & Vomiting: No Nausea or Vomiting Pain: Pain is tolerable per patient Peripheral Nerve Block: Patient did not receive a nerve block
== END 2024-12-24 13:45 | disposition home or self-care (01) ==
PROVIDERS: PCP Nurse Practitioner Family; Visit Provider Surgery
PROC: 0FT44ZZ Resection of Gallbladder, Percutaneous Endoscopic Approach (ICD-10-PCS; CPT 47562; principal; 2024-12-24 07:30)
DX: K80.10 Calculus of gallbladder with chronic cholecystitis without obstruction (principal); K82.8 Other specified diseases of gallbladder
CPT/HCPCS: 47562; 81025; 88304; J0131; J0690; J1100; J1171; J1885; J2003; J2250; J2405; J2704; J3010